=== PATIENT | male | born 1965 | race African-American/Black ===

== ENCOUNTER 2021-06-15 16:35 | Inpatient (IN) | payer MEDICAID, SELFPAY ==
--- NOTE | ~2021-06-15 | XR_ITS ---
EXAMINATION: XR CHEST CLINICAL INFORMATION: SOB and hypoxia. COMPARISON: None TECHNIQUE: Frontal view of the chest was obtained. FINDINGS: The lungs are well-expanded with patchy opacity seen in peripheral right midlung. Rest of the lungs are well-expanded and clear. The heart size and pulmonary vascularity is normal. No gross bony abnormality seen. XR/XR chest 1V IMPRESSION: Peripheral right midlung opacity likely developing infiltrate.
--- NOTE | ~2021-06-15 | CT_ITS ---
EXAMINATION: CTA CHEST PE STUDY CLINICAL INFORMATION: hypoxia, sob, chest wall pain COMPARISON: 05/19/2011 TECHNIQUE: Prior to contrast administration, noncontrast localization images were obtained. After the administration of 70 mL of Omnipaque 350 IV contrast, contiguous thin slice helical images were obtained through the thorax. Reformatted MIP images in the coronal and sagittal planes were obtained at the acquisition workstation. This CT examination was performed using dose optimization techniques as appropriate, variously including the following: *Automated exposure control *Adjustment of mA and/or kV according to patient size (this includes techniques or standardized protocols for targeted exams where dose is matched to indication/reason for exam; i.e. extremities or head) *Use of iterative reconstruction technique DLP: 237 mGy-cm. FINDINGS: The bolus timing on this study was acceptable for visualization of the pulmonary arterial tree. There are no intraluminal pulmonary arterial filling defects present to suggest pulmonary embolism. Patchy bilateral airspace disease is seen with a slight peripheral predominance. Viral or atypical infectious etiology would be strongly favored with this appearance. This is superimposed on underlying centrilobular emphysematous changes which is more apparent in the upper lobes. Although most of the airspace disease is patchy there is more dense consolidation in the lateral aspect of the right upper lobe. No abnormal pulmonary nodules or masses are appreciated. No significant hilar or mediastinal adenopathy. There is no evidence of pleural effusion or pneumothorax. The heart is normal in size. No evidence of ventricular septal bowing or right heart strain. Great vessels are normal. Otherwise the mediastinum is unremarkable. There is no pericardial effusion or pericardial thickening. Limited evaluation of the upper abdominal viscera is unremarkable. CT/CT angio chest PE protocol IMPRESSION: No evidence for pulmonary emboli. Patchy bilateral airspace disease with a peripheral predominance most consistent with superimposed atypical or viral infectious etiology superimposed on underlying emphysematous change. Clinical correlation and follow-up may be helpful. VTE: Negative
[2021-06-15 17:20] VITALS: BP 109/68; PULSE 93; RESP 18; TEMP 37.8; O2SAT 88; BMI 26.9
[2021-06-15 17:22] VITALS: BP 111/67; PULSE 93; RESP 18; TEMP 37.8; O2SAT 95
--- NOTE | 2021-06-15 17:26 | ECG_ITS ---
Test Reason : SOB Blood Pressure : / mmHG Vent. Rate : 089 BPM Atrial Rate : 089 BPM P-R Int : 120 ms QRS Dur : 088 ms QT Int : 328 ms P-R-T Axes : 068 019 -17 degrees QTc Int : 399 ms Normal sinus rhythm Voltage criteria for left ventricular hypertrophy Nonspecific T wave abnormality Abnormal ECG When compared with ECG of 07-JAN-2012 13:36, No significant change was found Referred By: Shira Moffett Electronically Signed By:CHIRAG MORALES
[2021-06-15 17:52] VITALS: BP 145/59; PULSE 88; RESP 18; TEMP 37.7; O2SAT 92
--- NOTE | 2021-06-15 18:00 | ED.URI ---
HPI - URI/Sore Throat General Chief Complaint: Upper Respiratory Symptoms Stated Complaint: cough cold congestion x3 days Time Seen by Provider: 06/15/21 16:45 Source: patient Mode of arrival: ambulatory Limitations: no limitations History of Present Illness HPI Narrative: 55-year-old male with a past medical history of hypertension, HIV on Biktarvy here with complaints of 4 days of nasal congestion, headaches, subjective fevers, body aches and shortness of breath. No chest pain, leg swelling or pain. No abdominal pain, vomiting or diarrhea. Patient denies sick contacts or recent travel. He has not received a COVID vaccine He tells me he is followed by Dr. Dominique from Infectious Disease. Last cd4 1275 09/2019 Related Data Home Medications Medication Instructions Recorded Confirmed atenolol 100 mg tablet 1 tab PO DAILY 06/15/21 06/15/21 bictegravir 50 mg-emtricitabine 1 tab PO QAM 06/15/21 06/15/21 200 mg-tenofovir alafenam 25 mg tablet (Biktarvy) cetirizine 10 mg tablet 1 tab PO DAILY 06/15/21 06/15/21 ibuprofen 600 mg tablet 600 mg PO Q8H PRN 06/15/21 06/15/21 lisinopril 10 mg tablet 1 tab PO DAILY 06/15/21 06/15/21 megestrol 400 mg/10 mL (40 mg/mL) 20 ml PO DAILY 06/15/21 06/15/21 oral suspension Allergies Allergy/AdvReac Type Severity Reaction Status Date / Time No Known Allergies Allergy Unverified 06/12/20 17:51 Review of Systems Review of Systems: Yes all other systems are reviewed and are negative Constitutional: Constitutional: Reports no additional constitutional complaints, Reports body ache(s), Reports chills, Reports fever(s), Reports headache(s) and Denies weakness Eyes: Eyes: Reports no additional eye complaints and Denies change in vision ENT: Reports system reviewed and no additional complaints, except as documented, Denies dizziness, Reports headache(s), Reports nasal congestion, Denies nasal discharge and Denies neck pain Cardiovascular: Cardiovascular: Reports no additional cardiovascular complaints, Denies chest pain, Denies leg edema and Reports dyspnea Respiratory: Respiratory: Reports no additional respiratory complaints, Reports cough and Reports dyspnea Gastrointestinal: Gastrointestinal: Reports no additional gastrointestinal complaints, Denies abdominal pain, Denies diarrhea, Denies nausea and Denies vomiting Genitourinary: Genitourinary: Denies urinary incontinence Musculoskeletal: Musculoskeletal: Reports no additional musculoskeletal complaints, Denies back pain, Denies arthralgias, Denies joint swelling, Denies neck pain, Denies numbness and Denies tingling Integumentary/Breasts: Skin/Breast: Reports system reviewed and no additional complaints, except as docu and Denies rash Neurologic: Reports system reviewed and no additional complaints, except as documented, Denies Abnormal speech present, Denies dizziness, Reports headache(s), Denies numbness, Denies tingling and Denies weakness PMFSH Past Medical History Attestation statement: The following information was validated with the patient. Source: old records reviewed and nursing notes reviewed Social History Social History Patient Tobacco Use Status: Current everyday Tobacco user Smoked in Last 30 Days: Yes Advance Directives: No Advance Directives Information Provided: No Physical Exam Vital Signs: Vital Signs: Last Vital Signs Temp 99 F 06/15/21 19:56 Pulse 87 06/15/21 19:56 Resp 18 06/15/21 19:56 BP 138/64 06/15/21 19:56 Pulse Ox 94 06/15/21 19:56 Body Mass Index 26.9 Const: General: cooperative, healthy appearing, comfortable and no acute distress Orientation/consciousness: patient oriented x3 Limitations: no limitations HENMT: Head: Yes normal to inspection Ears: hearing grossly normal bilaterally General nose exam: Normal external nose present Face and sinus: Yes normal facial exam Mouth: Normal oral and palatal mucosa present Throat: Yes posterior oropharynx normal Eyes: General: appearance normal, both eyes and all related structures Pupils: Equal, round and reactive pupils present Neck: Neck: Yes normal visual inspection Chest: Chest palpation & inspection: normal inspection of the chest Resp: Effort & Inspection: normal respiratory effort Auscultation: clear to auscultation bilaterally Cardio: Rate: regular rate Rhythm: regular rhythm Peripheral pulses: Peripheral pulses 2+ throughout GI: Inspection: Yes normal to inspection Palpation (GI): Soft to palpation and nontender Auscultation: normal bowel sounds Back/Spine/Pelvis: Thoracic/Lumbar Spine: thoracic and lumbar spine normal to inspection Skin: General skin exam: no rashes or lesions noted Neuro: General: patient oriented x3, no focal motor deficits and normal sensation to monofilament Cranial nerves: Yes Equal, round and reactive pupils present Cognition (Neuro): normal cognition Speech: No Abnormal speech present Gait exam (Neuro): Normal gait present Motor exam (neuro): 5/5 motor strength present throughout Extrem: General: Yes normal to inspection, Yes no pedal edema and Yes no calf tenderness Course Course Course Narrative: 55-year-old male with history of HIV or few with flu-like symptoms for 4 days.. On arrival he is hypoxic 88%. Improved on 5 L of oxygen. He is not vaccinated for COVID. Will check labs, EKG, chest x-ray, COVID screen 1829-CXR shows peripheral right midlung opacity likely developing infiltrate. AT this time infection is suspected. Antibiotics ordered. 1831-COVID screen positive. ?Reviewed labs which show a mild leukocytosis.. Also elevated LFTs which is likely from viral illness. Elevated troponin with no reports of chest pain or EKG changes. Plan to follow. Elevated D-dimer with hypoxia so will check CTA to rule out PE. [address] [facility] IMPRESSION: No evidence for pulmonary emboli. ? Patchy bilateral airspace disease with a peripheral predominance most consistent with superimposed atypical or viral infectious etiology superimposed on underlying emphysematous change. Clinical correlation and follow-up may be helpful. ? -spoke to Dr. Sotelo who accepted admission MDM - URI/Sore Throat Medical Records Attestation: I reviewed the patient's medical records. Lab Data Attestation: I reviewed the patient's lab results. Result diagrams: 06/15/21 18:05 06/15/21 19:04 Labs: Lab Results 06/15/21 06/15/21 06/15/21 Range/Units 18:05 18:05 18:05 WBC 11.0 H (4.8-10.8) X10*3/uL RBC 4.25 L (4.60-5.80) X10*6/uL Hgb 12.7 L (14.0-18.0) g/dl Hct 36.6 L (42-52) % MCV 86.1 (80-98) fL MCH 29.9 (27.0-33.0) pg MCHC 34.7 (31.0-36.0) g/dl RDW 15.8 (11.0-16.0) % Plt Count TNP MPV Not Reportable Immature Gran % (Auto) 0.7 H (0.0-0.4) % Neut % (Auto) 82.0 H (45-73) % Lymph % (Auto) 14.6 L (20-40) % [place] % (Auto) 2.6 (2-11) % Eos % (Auto) 0.0 (0-4) % Baso % (Auto) 0.1 (0-2) % Lymph # (Auto) 1.6 (1.2-4.9) X10*3/uL [place] # (Auto) 0.3 (0.1-1.2) X10*3/uL Eos # (Auto) 0.0 (0.0-0.4) X10*3/uL Baso # (Auto) 0.0 (0.0-0.2) X10*3/uL Abs Immat Gran (auto) 0.08 H (0.00-0.03) X10*3/uL Absolute Neuts (auto) 9.0 H (2.0-8.3) X10*3/uL Absolute Nucleated RBC 0.020 H (0.0-0.012) X10*3/uL Nucleated RBC % (auto) 0.2 (0.0-0.2) /100WBC Smear Tech's Comments VERIFIED Whole Blood PT (11.1-13.5) sec Whole Blood INR (0.9-1.1) D-Dimer NG/ML Sodium (135-145) mmol/L Potassium (3.3-5.1) mmol/L Chloride (96-108) mmol/L Carbon Dioxide (22-29) mmol/L Anion Gap (12-20) BUN (9-16) mg/dL Creatinine (0.5-1.4) mg/dL Estim Creat Clear Calc Estimated GFR Random Glucose (60-115) mg/dL Lactic Acid 2.3 H* (0.5-2.0) mmol/L Lactic Acid Fup @ 2Hr (0.5-2.0) mmol/L Calcium (8.4-10.2) mg/dL Magnesium (1.6-2.6) mg/dL Ferritin Total Bilirubin (0.0-1.0) mg/dL Direct Bilirubin (0.0-0.5) mg/dL AST (5-37) U/L ALT (0-40) U/L Alkaline Phosphatase (39-117) U/L Lactate Dehydrogenase Troponin I High Sens 42.5 H* (<3.5-35.0) ng/L Total Protein (6.5-8.0) g/dL Albumin (3.5-5.0) g/dL Procalcitonin ng/mL COVID-19 (RICHARD) (Negative) COVID-19 Clin Com 06/15/21 06/15/21 06/15/21 Range/Units 18:05 18:05 18:05 WBC (4.8-10.8) X10*3/uL RBC (4.60-5.80) X10*6/uL Hgb (14.0-18.0) g/dl Hct (42-52) % MCV (80-98) fL MCH (27.0-33.0) pg MCHC (31.0-36.0) g/dl RDW (11.0-16.0) % Plt Count MPV Immature Gran % (Auto) (0.0-0.4) % Neut % (Auto) (45-73) % Lymph % (Auto) (20-40) % [place] % (Auto) (2-11) % Eos % (Auto) (0-4) % Baso % (Auto) (0-2) % Lymph # (Auto) (1.2-4.9) X10*3/uL [place] # (Auto) (0.1-1.2) X10*3/uL Eos # (Auto) (0.0-0.4) X10*3/uL Baso # (Auto) (0.0-0.2) X10*3/uL Abs Immat Gran (auto) (0.00-0.03) X10*3/uL Absolute Neuts (auto) (2.0-8.3) X10*3/uL Absolute Nucleated RBC (0.0-0.012) X10*3/uL Nucleated RBC % (auto) (0.0-0.2) /100WBC Smear Tech's Comments Whole Blood PT (11.1-13.5) sec Whole Blood INR (0.9-1.1) D-Dimer 818 NG/ML Sodium (135-145) mmol/L Potassium (3.3-5.1) mmol/L Chloride (96-108) mmol/L Carbon Dioxide (22-29) mmol/L Anion Gap (12-20) BUN (9-16) mg/dL Creatinine (0.5-1.4) mg/dL Estim Creat Clear Calc Estimated GFR Random Glucose (60-115) mg/dL Lactic Acid (0.5-2.0) mmol/L Lactic Acid Fup @ 2Hr (0.5-2.0) mmol/L Calcium (8.4-10.2) mg/dL Magnesium (1.6-2.6) mg/dL Ferritin Cancelled Total Bilirubin (0.0-1.0) mg/dL Direct Bilirubin (0.0-0.5) mg/dL AST (5-37) U/L ALT (0-40) U/L Alkaline Phosphatase (39-117) U/L Lactate Dehydrogenase Cancelled Troponin I High Sens (<3.5-35.0) ng/L Total Protein (6.5-8.0) g/dL Albumin (3.5-5.0) g/dL Procalcitonin ng/mL COVID-19 (RICHARD) Positive A (Negative) COVID-19 Clin Com See Note 06/15/21 06/15/21 06/15/21 Range/Units 19:04 19:04 21:17 WBC (4.8-10.8) X10*3/uL RBC (4.60-5.80) X10*6/uL Hgb (14.0-18.0) g/dl Hct (42-52) % MCV (80-98) fL MCH (27.0-33.0) pg MCHC (31.0-36.0) g/dl RDW (11.0-16.0) % Plt Count MPV Immature Gran % (Auto) (0.0-0.4) % Neut % (Auto) (45-73) % Lymph % (Auto) (20-40) % [place] % (Auto) (2-11) % Eos % (Auto) (0-4) % Baso % (Auto) (0-2) % Lymph # (Auto) (1.2-4.9) X10*3/uL [place] # (Auto) (0.1-1.2) X10*3/uL Eos # (Auto) (0.0-0.4) X10*3/uL Baso # (Auto) (0.0-0.2) X10*3/uL Abs Immat Gran (auto) (0.00-0.03) X10*3/uL Absolute Neuts (auto) (2.0-8.3) X10*3/uL Absolute Nucleated RBC (0.0-0.012) X10*3/uL Nucleated RBC % (auto) (0.0-0.2) /100WBC Smear Tech's Comments Whole Blood PT (11.1-13.5) sec Whole Blood INR (0.9-1.1) D-Dimer NG/ML Sodium 134 L (135-145) mmol/L Potassium 3.5 (3.3-5.1) mmol/L Chloride 97 (96-108) mmol/L Carbon Dioxide 24 (22-29) mmol/L Anion Gap 17 (12-20) BUN 13 (9-16) mg/dL Creatinine 1.28 (0.5-1.4) mg/dL Estim Creat Clear Calc 53.5 Estimated GFR 58 Random Glucose 89 (60-115) mg/dL Lactic Acid (0.5-2.0) mmol/L Lactic Acid Fup @ 2Hr 1.3 (0.5-2.0) mmol/L Calcium 8.5 (8.4-10.2) mg/dL Magnesium 2.6 (1.6-2.6) mg/dL Ferritin 2910 H Total Bilirubin 3.5 H (0.0-1.0) mg/dL Direct Bilirubin 2.0 H (0.0-0.5) mg/dL AST 129 H (5-37) U/L ALT 66 H (0-40) U/L Alkaline Phosphatase 83 (39-117) U/L Lactate Dehydrogenase 693 H Troponin I High Sens (<3.5-35.0) ng/L Total Protein 7.3 (6.5-8.0) g/dL Albumin 3.7 (3.5-5.0) g/dL Procalcitonin 1.35 ng/mL COVID-19 (RICHARD) (Negative) COVID-19 Clin Com 06/15/21 06/15/21 Range/Units 21:17 21:31 WBC (4.8-10.8) X10*3/uL RBC (4.60-5.80) X10*6/uL Hgb (14.0-18.0) g/dl Hct (42-52) % MCV (80-98) fL MCH (27.0-33.0) pg MCHC (31.0-36.0) g/dl RDW (11.0-16.0) % Plt Count MPV Immature Gran % (Auto) (0.0-0.4) % Neut % (Auto) (45-73) % Lymph % (Auto) (20-40) % [place] % (Auto) (2-11) % Eos % (Auto) (0-4) % Baso % (Auto) (0-2) % Lymph # (Auto) (1.2-4.9) X10*3/uL [place] # (Auto) (0.1-1.2) X10*3/uL Eos # (Auto) (0.0-0.4) X10*3/uL Baso # (Auto) (0.0-0.2) X10*3/uL Abs Immat Gran (auto) (0.00-0.03) X10*3/uL Absolute Neuts (auto) (2.0-8.3) X10*3/uL Absolute Nucleated RBC (0.0-0.012) X10*3/uL Nucleated RBC % (auto) (0.0-0.2) /100WBC Smear Tech's Comments Whole Blood PT 13.8 H (11.1-13.5) sec Whole Blood INR 1.2 H (0.9-1.1) D-Dimer NG/ML Sodium (135-145) mmol/L Potassium (3.3-5.1) mmol/L Chloride (96-108) mmol/L Carbon Dioxide (22-29) mmol/L Anion Gap (12-20) BUN (9-16) mg/dL Creatinine (0.5-1.4) mg/dL Estim Creat Clear Calc Estimated GFR Random Glucose (60-115) mg/dL Lactic Acid (0.5-2.0) mmol/L Lactic Acid Fup @ 2Hr (0.5-2.0) mmol/L Calcium (8.4-10.2) mg/dL Magnesium (1.6-2.6) mg/dL Ferritin Total Bilirubin (0.0-1.0) mg/dL Direct Bilirubin (0.0-0.5) mg/dL AST (5-37) U/L ALT (0-40) U/L Alkaline Phosphatase (39-117) U/L Lactate Dehydrogenase Troponin I High Sens 48.0 H* (<3.5-35.0) ng/L Total Protein (6.5-8.0) g/dL Albumin (3.5-5.0) g/dL Procalcitonin ng/mL COVID-19 (RICHARD) (Negative) COVID-19 Clin Com Imaging Data Chest x-ray: Attestation: I personally reviewed and interpreted this imaging study as follows: Radiologist's impression: EXAMINATION: XR CHEST CLINICAL INFORMATION: SOB and hypoxia. COMPARISON: None TECHNIQUE: Frontal view of the chest was obtained. FINDINGS: The lungs are well-expanded with patchy opacity seen in peripheral right midlung. Rest of the lungs are well-expanded and clear. The heart size and pulmonary vascularity is normal. No gross bony abnormality seen. XR/XR chest 1V IMPRESSION: Peripheral right midlung opacity likely developing infiltrate. ? CT scan - chest: Attestation: I personally reviewed and interpreted this imaging study as follows: Radiologist's impression: IMPRESSION: No evidence for pulmonary emboli. ? Patchy bilateral airspace disease with a peripheral predominance most consistent with superimposed atypical or viral infectious etiology superimposed on underlying emphysematous change. Clinical correlation and follow-up may be helpful. ? VTE: Negative ECG Data Attestation: I personally reviewed and interpreted this ECG as follows: ECG interpretation date: 06/15/21 ECG interpretation time: 18:41 Interpretation: Normal sinus rhythm with a rate in 9, normal NV, normal QRS, normal QT. Nonspecific ST changes Critical Care Time Critical Care Time Critical Care Time: Yes Total Critical Care Time: 30 Attestation: hypoxia, requiring admit, discussion with medicine Discharge Plan Discharge Clinical Impression: COVID-19, Pneumonia, Hypoxia, Elevated liver enzymes Patient Disposition: Admitted As Inpatient
[2021-06-15 18:17] LABS: Basophils Percent Auto 0.1 % (0-2); MANUAL DIFF FLAG SCAN; Red Cell Distribution Width 15.8 % (11.0-16.0)
[2021-06-15 18:26] LABS: COVID-19 Test Positive (Negative); IDNOW Serial# 9DD0AD1C
--- NOTE | 2021-06-15 18:29 | PHA.MEDREC ---
Pharmacy Consult ? Medication Reconciliation Pharmacy has completed the medication reconciliation. Pulled the medications from his external medication history.
[2021-06-15 18:30] LABS: D Dimer 818 NG/ML
[2021-06-15 18:32] LABS: Lactic Acid 2.3 mmol/L (0.5-2.0)
[2021-06-15 18:37] LABS: Hemoglobin 12.7 g/dl (14.0-18.0); SCAN SMEAR FLAG 1
[2021-06-15 18:39] LABS: Hematocrit 36.6 % (42-52); Imm Gran Abs Auto 0.08 X10*3/uL (0.00-0.03); Imm Gran Pct Auto 0.7 % (0.0-0.4); Lymphocytes Absolute Auto 1.6 X10*3/uL (1.2-4.9); Lymphocytes Percent Auto 14.6 % (20-40); Mean Corpuscular HGB Conc 34.7 g/dl (31.0-36.0); Mean Corpuscular Hemoglobin 29.9 pg (27.0-33.0); Mean Corpuscular Volume 86.1 fL (80-98); Monocytes Absolute Auto 0.3 X10*3/uL (0.1-1.2); Monocytes Percent Auto 2.6 % (2-11); NRBC Pct Auto 0.2 /100WBC (0.0-0.2); PLT CLUMP 1; Red Blood Count 4.25 X10*6/uL (4.60-5.80)
[2021-06-15 18:42] LABS: PLT ABN DIST 1
[2021-06-15 18:48] LABS: Troponin-I High Sensitivity 42.5 ng/L (<3.5-35.0)
[2021-06-15 19:01] LABS: SLIDE REVIEW VERIFIED
[2021-06-15] MEDS: Sulfamethox/Trimeth 800/160 TABLET 2 TAB PO (19:17)
[2021-06-15] MEDS: cefTRIAXone sodium 1 GM in 0.9 % Sodium Chloride 50 ML IV (19:17)
[2021-06-15 19:31] LABS: Alanine Aminotransferase 66 U/L (0-40); Albumin Level 3.7 g/dL (3.5-5.0); Alkaline Phosphatase 83 U/L (39-117); Anion Gap 17 (12-20); Aspartate Amino Transferase 129 U/L (5-37); Bilirubin Total 3.5 mg/dL (0.0-1.0); Blood Urea Nitrogen 13 mg/dL (9-16); Calcium 8.5 mg/dL (8.4-10.2); Carbon Dioxide 24 mmol/L (22-29); Chloride 97 mmol/L (96-108); Creatinine Clr Calc Pharmacy 53.5; Estimated Glomerular Filt Rate 58; Glucose Random 89 mg/dL (60-115); Lactate Dehydrogenase 693 U/L (118-273); Magnesium 2.6 mg/dL (1.6-2.6); Potassium 3.5 mmol/L (3.3-5.1); Sodium 134 mmol/L (135-145); Total Protein 7.3 g/dL (6.5-8.0)
[2021-06-15] MEDS: Azithromycin 500 MG in 0.9 % Sodium Chloride 250 ML 125 MG IV (19:55)
[2021-06-15 19:56] VITALS: BP 138/64; PULSE 87; RESP 18; TEMP 37.2; O2SAT 94
[2021-06-15 20:04] LABS: Procalcitonin 1.35 ng/mL
[2021-06-15 20:11] LABS: Reflex Lactate? Lactic Acid Added
[2021-06-15] MEDS: iohexoL 350 MG/ML 100 ML INFUS..BTL IV (20:19)
[2021-06-15 20:25] LABS: Ferritin 2910 ng/mL (20-250)
--- NOTE | 2021-06-15 20:47 | PC.NURSE ---
Patient A+Ox4. COVID positive. Labs drawn and sent. IV palced and flushed. MEds given per NOV. Independent in room. Continent. Hypoxic on admission on room air at 88%. Placed on 5 L NC. SPO2 95%. VSS. Resting safely.
[2021-06-15 21:32] LABS: ~Lactic Acid-LAB USE ONLY 1.3 mmol/L (0.5-2.0)
[2021-06-15 21:37] LABS: Prothrombin Time Whole Bld POC 13.8 sec (11.1-13.5); ~PT, ~INR - Anti Coag Clinic 1.2 (0.9-1.1)
[2021-06-15 22:10] LABS: Appearance Urine CLEAR; Color Urine YELLOW; Glucose Urine UA NEG (NEG); Leukocyte Esterase Urine NEG (NEG); Nitrite Urine NEG (NEG); PH 6.5 (5.0-8.0); UACC Culture Trigger NO; Urine Blood 3+ (NEG); Urine Ketones 5 MG/DL (NEG); Urine Protein 3+ MG/DL (NEG-TRACE)
[2021-06-15 22:20] LABS: Bacteria Urine 1+ /LPF; WBC Urine 0 /HPF (0-4)
--- NOTE | 2021-06-15 23:07 | PM.IMHP ---
History of Present Illness Date of Service: 06/15/21 Chief Complaint: SOB 55-year-old male with past medical history of HIV presents to the hospital complaining of shortness breast as well as cough for the past few days. Patient was also complaining of right-sided chest pain that is constant, nonradiating, /10, no alleviating or exacerbating factors. Patient is non vaccinated against COVID. And is not sure if he has been around any sick contacts. Her denies any palpitations, no headache or change in vision, no dizziness. No abdominal pain nausea or vomiting, no diarrhea or constipation, urinary symptoms and no lower extremity edema. On arrival to the ED patient noted to be hypoxic with an O2 level of 88% on room air, has temp of a 100.1?, heart rate of 93, respiratory rate of 18, blood pressure 109/60 For WBC count of 11, hemoglobin 12.7 PT of 13.8, INR of 1.2, D-dimer of 818, sodium of 134, lactic acid of 2.3 improved after IV fluids, ferritin of 2910, total bili of 3.5, AST of 129, ALT of 66, LDH of 693, troponin initially of 42.5 that increased to 48, COVID-[address] angiogram which was negative for PE but showed patchy bilateral airspace disease with peripheral predominant most consistent with superimposed atypical or viral pneumonia Patient will be admitted for further management Review of Systems Review of Systems: Yes all other systems are reviewed and are negative [facility] Medical History HIV (human immunodeficiency virus infection) Hypertension Pertinent family history: denies any family history Surgical History No significant past surgical history Social History Patient Tobacco Use Status: Current everyday Tobacco user Smoked in Last 30 Days: Yes Advance Directives: No Advance Directives Information Provided: No Meds Allergies Allergy/AdvReac Type Severity Reaction Status Date / Time No Known Allergies Allergy Unverified 06/12/20 17:51 Active Medications: Current Medications Acetaminophen (Acetaminophen 325 Mg Tablet) 650 mg PO Q6H PRN PRN Reason: Pain, Mild (Pain Scale 1-3) Atenolol (Atenolol 100 Mg Tablet) 100 mg PO DAILY [facility]; Protocol Bictegravir/Emtricitabine/Tenofovir (Bictegrav/Emtricit/Tenofov Ala 1 Tab Tablet) 1 tab PO DAILY [facility] Dexamethasone Sodium Phosphate (Dexamethasone Sod Phosphate 4 Mg/Ml Vial) 6 mg IVPUSH DAILY [facility] Docusate Sodium (Docusate Sodium 100 Mg Capsule) 100 mg PO DAILY PRN PRN Reason: Constipation Heparin Sodium (Porcine) (Heparin Sodium,Porcine 5,000 Unit/Ml Vial) 5,000 unit SUBCUT Q12H [facility] Sodium Chloride (Ns) 1,000 mls @ 100 mls/hr IVCONT .Q10H [facility] Stop: 06/16/21 08:51 Ibuprofen (Ibuprofen 600 Mg Tablet) 600 mg PO Q8H PRN PRN Reason: Headache Lisinopril (Lisinopril 10 Mg Tablet) 10 mg PO DAILY [facility]; Protocol Loratadine (Loratadine 10 Mg Tablet) 10 mg PO DAILY [facility] Megestrol Acetate (Megestrol Acetate 400 Mg/10 Ml Oral.Susp) 800 mg PO DAILY [facility] Ondansetron HCl (Ondansetron Hcl 4 Mg/2 Ml Vial) 4 mg IVPUSH Q8H PRN PRN Reason: Nausea and Vomiting Pharmacy Consult (Consult Rx Perform Med Rec) 1 each MISCELLANE ONCE PRN PRN Reason: Consult order Home Medications Medication Instructions Recorded Confirmed Last Taken Type atenolol 100 mg tablet 1 tab PO DAILY 06/15/21 06/15/21 Unknown History bictegravir 50 mg-emtricitabine 1 tab PO QAM 06/15/21 06/15/21 Unknown History 200 mg-tenofovir alafenam 25 mg tablet (Biktarvy) cetirizine 10 mg tablet 1 tab PO DAILY 06/15/21 06/15/21 Unknown History ibuprofen 600 mg tablet 600 mg PO Q8H PRN 06/15/21 06/15/21 Unknown History lisinopril 10 mg tablet 1 tab PO DAILY 06/15/21 06/15/21 Unknown History megestrol 400 mg/10 mL (40 mg/mL) 20 ml PO DAILY 06/15/21 06/15/21 Unknown History oral suspension Physical Exam Vital Signs and Narrative: Vital Signs: Last Vital Signs Temp 99 F 06/15/21 19:56 Pulse 87 06/15/21 19:56 Resp 18 06/15/21 19:56 BP 138/64 06/15/21 19:56 Pulse Ox 94 06/15/21 19:56 Body Mass Index 26.9 Const: General: cooperative and no acute distress Orientation/consciousness: patient oriented x3 Eyes: General: appearance normal, both eyes and all related structures Pupils: Equal, round and reactive pupils present Resp: Other: crackles bilaterally Effort & Inspection: normal respiratory effort Cardio: Rate: regular rate Rhythm: regular rhythm GI: Palpation (GI): Soft to palpation Auscultation: normal bowel sounds Skin: General skin exam: no rashes or lesions noted Neuro: General: patient oriented x3 Cranial nerves: Yes Equal, round and reactive pupils present Cognition (Neuro): normal cognition Extrem: General: Yes normal to inspection and Yes no pedal edema Results Labs CBC and Chem 7: 06/15/21 18:05 06/16/21 05:57 Labs: Laboratory Results - last 24 hr 06/15/21 06/15/21 06/15/21 18:05 18:05 18:05 MCV 86.1 MCH 29.9 MCHC 34.7 RDW 15.8 Plt Count TNP MPV Not Reportable Immature Gran % (Auto) 0.7 H Neut % (Auto) 82.0 H Lymph % (Auto) 14.6 L [place] % (Auto) 2.6 Eos % (Auto) 0.0 Baso % (Auto) 0.1 Lymph # (Auto) 1.6 [place] # (Auto) 0.3 Eos # (Auto) 0.0 Baso # (Auto) 0.0 Abs Immat Gran (auto) 0.08 H Absolute Neuts (auto) 9.0 H Absolute Nucleated RBC 0.020 H Nucleated RBC % (auto) 0.2 Smear Tech's Comments VERIFIED Whole Blood PT Whole Blood INR D-Dimer Anion Gap Estim Creat Clear Calc Estimated GFR Random Glucose Lactic Acid 2.3 H* Lactic Acid Fup @ 2Hr Calcium Magnesium Ferritin Total Bilirubin Direct Bilirubin AST ALT Alkaline Phosphatase Lactate Dehydrogenase Troponin I High Sens 42.5 H* Total Protein Albumin Procalcitonin Urine Color Urine Appearance Urine pH Ur Specific [place] Urine Protein Urine Glucose (UA) Urine Ketones Urine Blood Urine Nitrite Ur Leukocyte Esterase Urine RBC Urine WBC Ur Squamous Epith Cells Urine Bacteria COVID-19 ([facility]) COVID-19 Clin Com 06/15/21 06/15/21 06/15/21 18:05 18:05 18:05 MCV MCH MCHC RDW Plt Count MPV Immature Gran % (Auto) Neut % (Auto) Lymph % (Auto) [place] % (Auto) Eos % (Auto) Baso % (Auto) Lymph # (Auto) [place] # (Auto) Eos # (Auto) Baso # (Auto) Abs Immat Gran (auto) Absolute Neuts (auto) Absolute Nucleated RBC Nucleated RBC % (auto) Smear Tech's Comments Whole Blood PT Whole Blood INR D-Dimer 818 Anion Gap Estim Creat Clear Calc Estimated GFR Random Glucose Lactic Acid Lactic Acid Fup @ 2Hr Calcium Magnesium Ferritin Cancelled Total Bilirubin Direct Bilirubin AST ALT Alkaline Phosphatase Lactate Dehydrogenase Cancelled Troponin I High Sens Total Protein Albumin Procalcitonin Urine Color Urine Appearance Urine pH Ur Specific [place] Urine Protein Urine Glucose (UA) Urine Ketones Urine Blood Urine Nitrite Ur Leukocyte Esterase Urine RBC Urine WBC Ur Squamous Epith Cells Urine Bacteria COVID-19 ([facility]) Positive A COVID-19 Clin Com See Note 06/15/21 06/15/21 06/15/21 19:04 19:04 21:17 MCV MCH MCHC RDW Plt Count MPV Immature Gran % (Auto) Neut % (Auto) Lymph % (Auto) [place] % (Auto) Eos % (Auto) Baso % (Auto) Lymph # (Auto) [place] # (Auto) Eos # (Auto) Baso # (Auto) Abs Immat Gran (auto) Absolute Neuts (auto) Absolute Nucleated RBC Nucleated RBC % (auto) Smear Tech's Comments Whole Blood PT Whole Blood INR D-Dimer Anion Gap 17 Estim Creat Clear Calc 53.5 Estimated GFR 58 Random Glucose 89 Lactic Acid Lactic Acid Fup @ 2Hr 1.3 Calcium 8.5 Magnesium 2.6 Ferritin 2910 H Total Bilirubin 3.5 H Direct Bilirubin 2.0 H AST 129 H ALT 66 H Alkaline Phosphatase 83 Lactate Dehydrogenase 693 H Troponin I High Sens Total Protein 7.3 Albumin 3.7 Procalcitonin 1.35 Urine Color Urine Appearance Urine pH Ur Specific [place] Urine Protein Urine Glucose (UA) Urine Ketones Urine Blood Urine Nitrite Ur Leukocyte Esterase Urine RBC Urine WBC Ur Squamous Epith Cells Urine Bacteria COVID-19 ([facility]) COVID-19 Clin Com 06/15/21 06/15/21 06/15/21 21:17 21:31 22:03 MCV MCH MCHC RDW Plt Count MPV Immature Gran % (Auto) Neut % (Auto) Lymph % (Auto) [place] % (Auto) Eos % (Auto) Baso % (Auto) Lymph # (Auto) [place] # (Auto) Eos # (Auto) Baso # (Auto) Abs Immat Gran (auto) Absolute Neuts (auto) Absolute Nucleated RBC Nucleated RBC % (auto) Smear Tech's Comments Whole Blood PT 13.8 H Whole Blood INR 1.2 H D-Dimer Anion Gap Estim Creat Clear Calc Estimated GFR Random Glucose Lactic Acid Lactic Acid Fup @ 2Hr Calcium Magnesium Ferritin Total Bilirubin Direct Bilirubin AST ALT Alkaline Phosphatase Lactate Dehydrogenase Troponin I High Sens 48.0 H* Total Protein Albumin Procalcitonin Urine Color YELLOW Urine Appearance CLEAR Urine pH 6.5 Ur Specific [place] 1.010 Urine Protein 3+ H Urine Glucose (UA) NEG Urine Ketones 5 Urine Blood 3+ H Urine Nitrite NEG Ur Leukocyte Esterase NEG Urine RBC 1-4 Urine WBC 0 Ur Squamous Epith Cells NONE Urine Bacteria 1+ COVID-19 ([facility]) COVID-19 Clin Com Imaging Radiologist's Impressions: Impressions Chest X-Ray 06/15/21 17:27 IMPRESSION: Peripheral right midlung opacity likely developing infiltrate. Chest CTA 06/15/21 19:33 IMPRESSION: No evidence for pulmonary emboli. Patchy bilateral airspace disease with a peripheral predominance most consistent with superimposed atypical or viral infectious etiology superimposed on underlying emphysematous change. Clinical correlation and follow-up may be helpful. VTE: Negative Assessment and Plan (1) Acute respiratory failure with hypoxia: Status: Acute (2) COVID-19: Status: Acute (3) Pneumonia: Status: Acute (4) Sepsis: Status: Acute 55-year-old male with past medical history of HIV on Biktarvy presents to the hospital with shortness of breath as well the cough found to have COVID-19 pneumonia # acute hypoxic respiratory failure - secondary to COVID-19 pneumonia - 88% on room air on initial arrival - currently on 5 L of oxygen - dexamethasone for COVID-19 treatment - monitor respiratory status # sepsis - 2/2 COVID 19 PNA - has fever, leukocytosis - tx of covid 19 with O2 as well as dexamethasone - will hold off on starting abx - follow cultures # COVID-19 pneumonia - patient hypoxic, has bilateral infiltrate on chest CT - unvaccinated - will treat with dexamethasone - monitor respiratory status # HIV - continue Biktarvy DVT prophylaxis: Heparin subQ Quality Stroke Does the patient have a stroke diagnosis?: No VTE Prior VTE?: No VTE Risk Level:: Medical - moderate - high VTE Device Contraindication: Treatment Not Indicated VTE Drug Contraindication: N/A - Med Ordered
[2021-06-15] MEDS: 0.9 % Sodium Chloride 1,000 ML 100 ML IVCONT (23:58)
[2021-06-15] MEDS: Heparin Sodium,Porcine 5,000 UNIT/ML VIAL 5000 UNIT SUBCUT (23:59)
[2021-06-16] VITALS (15 sets, daily range): BP systolic 107–140; BP diastolic 54–72; PULSE 81–95; RESP 18–26; TEMP 36.3–39.2; O2SAT 86–95
--- NOTE | 2021-06-16 00:52 | PC.NURSE ---
pt a&O, he denies increase sob or chest pain. Pt placed on tele monitor. medicated per Nov. Gave report to Ej CHUN.
[2021-06-16 06:25] LABS: Basophils Percent Auto 0.1 % (0-2); Lymphocytes Absolute Auto 1.8 X10*3/uL (1.2-4.9); MANUAL DIFF FLAG SCAN; Mean Corpuscular Hemoglobin 30.7 pg (27.0-33.0); PLT CLUMP 1; SCAN SMEAR FLAG 1
[2021-06-16 06:27] LABS: Hematocrit 33.2 % (42-52); Hemoglobin 11.8 g/dl (14.0-18.0); Imm Gran Abs Auto 0.09 X10*3/uL (0.00-0.03); Imm Gran Pct Auto 0.8 % (0.0-0.4); Lymphocytes Percent Auto 15.8 % (20-40); Mean Corpuscular HGB Conc 35.5 g/dl (31.0-36.0); Mean Corpuscular Volume 86.5 fL (80-98); Mean Platelet Volume 11.8 fL (9.4-12.4); Monocytes Absolute Auto 0.3 X10*3/uL (0.1-1.2); Neutrophils Percent Auto 80.3 % (45-73); Red Blood Count 3.84 X10*6/uL (4.60-5.80); Red Cell Distribution Width 15.8 % (11.0-16.0); White Blood Count 11.1 X10*3/uL (4.8-10.8)
[2021-06-16 06:32] LABS: Anion Gap 14 (12-20); Blood Urea Nitrogen 11 mg/dL (9-16); Calcium 7.7 mg/dL (8.4-10.2); Carbon Dioxide 22 mmol/L (22-29); Chloride 100 mmol/L (96-108); Creatinine Clr Calc Pharmacy 61.1; Estimated Glomerular Filt Rate > 60; Glucose Random 77 mg/dL (60-115); Sodium 133 mmol/L (135-145)
[2021-06-16 07:03] LABS: Platelet Count 89 X10*3/uL (160-400)
[2021-06-16 07:17] LABS: SLIDE REVIEW VERIFIED
[2021-06-16 08:15] LABS: C Reactive Protein 15.72 mg/dL (< or = 0.50); Lactate Dehydrogenase 567 U/L (118-273)
[2021-06-16 08:51] LABS: Alanine Aminotransferase 52 U/L (0-40); Alkaline Phosphatase 69 U/L (39-117); Aspartate Amino Transferase 101 U/L (5-37); Bilirubin Direct 1.8 mg/dL (0.0-0.5); Bilirubin Total 2.5 mg/dL (0.0-1.0); Total Protein 5.7 g/dL (6.5-8.0)
[2021-06-16] MEDS: Megestrol Acetate 400 MG/10 ML ORAL.SUSP 800 MG PO (08:58)
[2021-06-16] MEDS: dexAMETHasone sod phosphate 4 MG/ML VIAL 6 MG IVPUSH (08:59)
[2021-06-16] MEDS: lisinopriL 10 MG TABLET PO (08:59)
[2021-06-16] MEDS: Potassium Chloride ER 20 MEQ TAB.ER.PRT 40 MEQ PO (08:59)
[2021-06-16] MEDS: Loratadine 10 MG TABLET PO (08:59)
[2021-06-16] MEDS: atenoloL 100 MG TABLET PO (09:00)
[2021-06-16 09:40] LABS: Ferritin 2168 ng/mL (20-250)
[2021-06-16] MEDS: Heparin Sodium,Porcine 5,000 UNIT/ML VIAL 5000 UNIT SUBCUT (10:47)
--- NOTE | 2021-06-16 11:21 | MHC.CM.PN ---
Patient is Covid (+) and unreachable by phone attempts; CM spoke with /Jina @ [phone]. Patient lives in an apartment with his and he required no DME nor services CALL [facility]. Goal for dc is home/no services and CM has initiated and will follow for dc planning. PCP is Dr. Madelin Akhtar.Patient's Mother/Opal at [phone] is the HCP.
--- NOTE | 2021-06-16 11:42 | P.PNIM_ITS ---
Progress Note: A&P (1) Sepsis: Status: Acute (2) Acute respiratory failure with hypoxia: Status: Acute (3) COVID-19: Status: Acute Assessment and Plan: 55-year-old male with past medical history of HIV on Biktarvy presents to the hospital with shortness of breath as well the cough found to have COVID-19 pneumonia acute hypoxic respiratory failure. secondary to COVID-19 pneumonia dexamethasone Supplemental oxygen ID consult Viral sepsis secondary to Covid 19 pna follow cx bilateral infiltrate on chest CT unvaccinated dexamethasone Transaminitis Likely secondary to viral infection from covid vs etoh Denied alcohol abuse trend HIV continue Biktarvy DVT prophylaxis:? Heparin subQ Attending Dr. Stanley Subjective Subjective Date of Service: 06/16/21 Review of Systems Follow up covid 19 no sob, some dry cough Denies chest pain, abdominal pain, nausea, fever Physical Exam Vital Signs: Vital Signs: Last Vital Signs Temp 99.2 F 06/16/21 11:30 Pulse 87 06/16/21 11:30 Resp 20 06/16/21 11:30 BP 107/54 L 06/16/21 11:30 Pulse Ox 90 L 06/16/21 11:30 Oxygen Flow Rate 5 06/16/21 00:49 Body Mass Index 26.9 Appearing in no acute distress lung normal expansion heart regular rate rhythm, clear S1, S2 positive bowel sounds, abdomen is soft, nontender neuro patient is alert x3, no focal deficits Objective Data Current Medications Acetaminophen (Acetaminophen 325 Mg Tablet) 650 mg PO Q6H PRN PRN Reason: Pain, Mild (Pain Scale 1-3) Atenolol (Atenolol 100 Mg Tablet) 100 mg PO DAILY [facility]; Protocol Last Admin: 06/16/21 09:00 Dose: 100 mg Documented by: Bictegravir/Emtricitabine/Tenofovir (Bictegrav/Emtricit/Tenofov Ala 1 Tab Tablet) 1 tab PO DAILY [facility] Last Admin: 06/16/21 09:00 Dose: 1 tab Documented by: Dexamethasone Sodium Phosphate (Dexamethasone Sod Phosphate 4 Mg/Ml Vial) 6 mg IVPUSH DAILY [facility] Last Admin: 06/16/21 08:59 Dose: 6 mg Documented by: Docusate Sodium (Docusate Sodium 100 Mg Capsule) 100 mg PO DAILY PRN PRN Reason: Constipation Heparin Sodium (Porcine) (Heparin Sodium,Porcine 5,000 Unit/Ml Vial) 5,000 unit SUBCUT Q12H [facility] Last Admin: 06/16/21 10:47 Dose: 5,000 unit Documented by: Remdesivir 200 mg/ Sodium (Chloride) 210 mls @ 105 mls/hr IV ONCE ONE Stop: 06/16/21 13:59 Remdesivir 100 mg/ Sodium (Chloride) 230 mls @ 115 mls/hr IV Q24H [facility] Stop: 06/20/21 13:59 Ibuprofen (Ibuprofen 600 Mg Tablet) 600 mg PO Q8H PRN PRN Reason: Headache Lisinopril (Lisinopril 10 Mg Tablet) 10 mg PO DAILY [facility]; Protocol Last Admin: 06/16/21 08:59 Dose: 10 mg Documented by: Loratadine (Loratadine 10 Mg Tablet) 10 mg PO DAILY [facility] Last Admin: 06/16/21 08:59 Dose: 10 mg Documented by: Megestrol Acetate (Megestrol Acetate 400 Mg/10 Ml Oral.Susp) 800 mg PO DAILY [facility] Last Admin: 06/16/21 08:58 Dose: 800 mg Documented by: Ondansetron HCl (Ondansetron Hcl 4 Mg/2 Ml Vial) 4 mg IVPUSH Q8H PRN PRN Reason: Nausea and Vomiting Pharmacy Consult (Consult Rx Perform Med Rec) 1 each MISCELLANE ONCE PRN PRN Reason: Consult order Labs CBC & Chem 7: 06/16/21 05:57 06/16/21 05:57 Labs: Laboratory Results - last 24 hr 06/15/21 06/15/21 06/15/21 18:05 18:05 18:05 MCV 86.1 MCH 29.9 MCHC 34.7 RDW 15.8 Plt Count TNP MPV Not Reportable Immature Gran % (Auto) 0.7 H Neut % (Auto) 82.0 H Lymph % (Auto) 14.6 L [place] % (Auto) 2.6 Eos % (Auto) 0.0 Baso % (Auto) 0.1 Lymph # (Auto) 1.6 [place] # (Auto) 0.3 Eos # (Auto) 0.0 Baso # (Auto) 0.0 Abs Immat Gran (auto) 0.08 H Absolute Neuts (auto) 9.0 H Absolute Nucleated RBC 0.020 H Nucleated RBC % (auto) 0.2 Smear Tech's Comments VERIFIED Whole Blood PT Whole Blood INR D-Dimer Anion Gap Estim Creat Clear Calc Estimated GFR Random Glucose Lactic Acid 2.3 H* Lactic Acid Fup @ 2Hr Calcium Magnesium Ferritin Total Bilirubin Direct Bilirubin AST ALT Alkaline Phosphatase Lactate Dehydrogenase Troponin I High Sens 42.5 H* C-Reactive Protein Total Protein Albumin Procalcitonin Urine Color Urine Appearance Urine pH Ur Specific [place] Urine Protein Urine Glucose (UA) Urine Ketones Urine Blood Urine Nitrite Ur Leukocyte Esterase Urine RBC Urine WBC Ur Squamous Epith Cells Urine Bacteria COVID-19 ([facility]) COVID-19 Clin Com 06/15/21 06/15/21 06/15/21 18:05 18:05 18:05 MCV MCH MCHC RDW Plt Count MPV Immature Gran % (Auto) Neut % (Auto) Lymph % (Auto) [place] % (Auto) Eos % (Auto) Baso % (Auto) Lymph # (Auto) [place] # (Auto) Eos # (Auto) Baso # (Auto) Abs Immat Gran (auto) Absolute Neuts (auto) Absolute Nucleated RBC Nucleated RBC % (auto) Smear Tech's Comments Whole Blood PT Whole Blood INR D-Dimer 818 Anion Gap Estim Creat Clear Calc Estimated GFR Random Glucose Lactic Acid Lactic Acid Fup @ 2Hr Calcium Magnesium Ferritin Cancelled Total Bilirubin Direct Bilirubin AST ALT Alkaline Phosphatase Lactate Dehydrogenase Cancelled Troponin I High Sens C-Reactive Protein Total Protein Albumin Procalcitonin Urine Color Urine Appearance Urine pH Ur Specific [place] Urine Protein Urine Glucose (UA) Urine Ketones Urine Blood Urine Nitrite Ur Leukocyte Esterase Urine RBC Urine WBC Ur Squamous Epith Cells Urine Bacteria COVID-19 ([facility]) Positive A COVID-19 Clin Com See Note 06/15/21 06/15/21 06/15/21 19:04 19:04 21:17 MCV MCH MCHC RDW Plt Count MPV Immature Gran % (Auto) Neut % (Auto) Lymph % (Auto) [place] % (Auto) Eos % (Auto) Baso % (Auto) Lymph # (Auto) [place] # (Auto) Eos # (Auto) Baso # (Auto) Abs Immat Gran (auto) Absolute Neuts (auto) Absolute Nucleated RBC Nucleated RBC % (auto) Smear Tech's Comments Whole Blood PT Whole Blood INR D-Dimer Anion Gap 17 Estim Creat Clear Calc 53.5 Estimated GFR 58 Random Glucose 89 Lactic Acid Lactic Acid Fup @ 2Hr 1.3 Calcium 8.5 Magnesium 2.6 Ferritin 2910 H Total Bilirubin 3.5 H Direct Bilirubin 2.0 H AST 129 H ALT 66 H Alkaline Phosphatase 83 Lactate Dehydrogenase 693 H Troponin I High Sens C-Reactive Protein Total Protein 7.3 Albumin 3.7 Procalcitonin 1.35 Urine Color Urine Appearance Urine pH Ur Specific [place] Urine Protein Urine Glucose (UA) Urine Ketones Urine Blood Urine Nitrite Ur Leukocyte Esterase Urine RBC Urine WBC Ur Squamous Epith Cells Urine Bacteria COVID-19 ([facility]) COVID-19 Clin Com 06/15/21 06/15/21 06/15/21 21:17 21:31 22:03 MCV MCH MCHC RDW Plt Count MPV Immature Gran % (Auto) Neut % (Auto) Lymph % (Auto) [place] % (Auto) Eos % (Auto) Baso % (Auto) Lymph # (Auto) [place] # (Auto) Eos # (Auto) Baso # (Auto) Abs Immat Gran (auto) Absolute Neuts (auto) Absolute Nucleated RBC Nucleated RBC % (auto) Smear Tech's Comments Whole Blood PT 13.8 H Whole Blood INR 1.2 H D-Dimer Anion Gap Estim Creat Clear Calc Estimated GFR Random Glucose Lactic Acid Lactic Acid Fup @ 2Hr Calcium Magnesium Ferritin Total Bilirubin Direct Bilirubin AST ALT Alkaline Phosphatase Lactate Dehydrogenase Troponin I High Sens 48.0 H* C-Reactive Protein Total Protein Albumin Procalcitonin Urine Color YELLOW Urine Appearance CLEAR Urine pH 6.5 Ur Specific [place] 1.010 Urine Protein 3+ H Urine Glucose (UA) NEG Urine Ketones 5 Urine Blood 3+ H Urine Nitrite NEG Ur Leukocyte Esterase NEG Urine RBC 1-4 Urine WBC 0 Ur Squamous Epith Cells NONE Urine Bacteria 1+ COVID-19 ([facility]) COVID-19 Clin Com 06/16/21 06/16/21 05:57 05:57 MCV 86.5 MCH 30.7 MCHC 35.5 RDW 15.8 Plt Count 89 L MPV 11.8 Immature Gran % (Auto) 0.8 H Neut % (Auto) 80.3 H Lymph % (Auto) 15.8 L [place] % (Auto) 3.0 Eos % (Auto) 0.0 Baso % (Auto) 0.1 Lymph # (Auto) 1.8 [place] # (Auto) 0.3 Eos # (Auto) 0.0 Baso # (Auto) 0.0 Abs Immat Gran (auto) 0.09 H Absolute Neuts (auto) 9.0 H Absolute Nucleated RBC 0.000 Nucleated RBC % (auto) 0.0 Smear Tech's Comments VERIFIED Whole Blood PT Whole Blood INR D-Dimer Anion Gap 14 Estim Creat Clear Calc 61.1 Estimated GFR > 60 Random Glucose 77 Lactic Acid Lactic Acid Fup @ 2Hr Calcium 7.7 L D Magnesium Ferritin 2168 H Total Bilirubin 2.5 H Direct Bilirubin 1.8 H AST 101 H ALT 52 H Alkaline Phosphatase 69 Lactate Dehydrogenase 567 H Troponin I High Sens C-Reactive Protein 15.72 H Total Protein 5.7 L D Albumin 3.0 L Procalcitonin Urine Color Urine Appearance Urine pH Ur Specific [place] Urine Protein Urine Glucose (UA) Urine Ketones Urine Blood Urine Nitrite Ur Leukocyte Esterase Urine RBC Urine WBC Ur Squamous Epith Cells Urine Bacteria COVID-19 ([facility]) COVID-19 Clin Com Quality Stroke Does the patient have a stroke diagnosis?: No VTE Prior VTE?: No VTE Risk Level:: Medical - moderate - high VTE Device Contraindication: Treatment Not Indicated VTE Drug Contraindication: N/A - Med Ordered
[2021-06-16] MEDS: Remdesivir 200 MG in 0.9 % Sodium Chloride 210 ML 105 MG IV (12:27)
--- NOTE | 2021-06-16 15:09 | W.PM.IDCN ---
History of Present Illness Data of Consult Service Date: 06/16/21 Requesting physician: Kaylah Cornejo Primary Care Provider: Madelin Akhtar MD HPI Reason for consult: COVID He presents to ER with three days of cough and cold and shortness of breath. He sees me for HIV care at [facility] and has been taking Biktarvy as directed He has not received COVID vaccine Review of Systems Review of Systems: Yes all other systems are reviewed and are negative PMFSH Past Medical History Medical History HIV (human immunodeficiency virus infection) Hypertension Family History Family history: reviewed and not pertinent Surgical History Surgical History No significant past surgical history Social History Social History Patient Tobacco Use Status: Current everyday Tobacco user Smoked in Last 30 Days: Yes Currently Displaying Signs/Symptoms of Drug Intoxication Withdrawal: No Advance Directives: No Advance Directives Information Provided: No Do you have thoughts of harming others: None Do you have a plan to hurt others: No Plan service: No Current occupational status: disabled Meds Allergies Allergy/AdvReac Type Severity Reaction Status Date / Time No Known Allergies Allergy Unverified 06/12/20 17:51 Active Medications: Current Medications Acetaminophen (Acetaminophen 325 Mg Tablet) 650 mg PO Q6H PRN PRN Reason: Pain, Mild (Pain Scale 1-3) Atenolol (Atenolol 100 Mg Tablet) 100 mg PO DAILY [facility]; Protocol Last Admin: 06/16/21 09:00 Dose: 100 mg Documented by: Bictegravir/Emtricitabine/Tenofovir (Bictegrav/Emtricit/Tenofov Ala 1 Tab Tablet) 1 tab PO DAILY [facility] Last Admin: 06/16/21 09:00 Dose: 1 tab Documented by: Dexamethasone Sodium Phosphate (Dexamethasone Sod Phosphate 4 Mg/Ml Vial) 6 mg IVPUSH DAILY [facility] Last Admin: 06/16/21 08:59 Dose: 6 mg Documented by: Docusate Sodium (Docusate Sodium 100 Mg Capsule) 100 mg PO DAILY PRN PRN Reason: Constipation Heparin Sodium (Porcine) (Heparin Sodium,Porcine 5,000 Unit/Ml Vial) 5,000 unit SUBCUT Q12H [facility] Last Admin: 06/16/21 10:47 Dose: 5,000 unit Documented by: Remdesivir 100 mg/ Sodium (Chloride) 230 mls @ 115 mls/hr IV Q24H [facility] Stop: 06/20/21 13:59 Ibuprofen (Ibuprofen 600 Mg Tablet) 600 mg PO Q8H PRN PRN Reason: Headache Lisinopril (Lisinopril 10 Mg Tablet) 10 mg PO DAILY [facility]; Protocol Last Admin: 06/16/21 08:59 Dose: 10 mg Documented by: Loratadine (Loratadine 10 Mg Tablet) 10 mg PO DAILY [facility] Last Admin: 06/16/21 08:59 Dose: 10 mg Documented by: Megestrol Acetate (Megestrol Acetate 400 Mg/10 Ml Oral.Susp) 800 mg PO DAILY [facility] Last Admin: 06/16/21 08:58 Dose: 800 mg Documented by: Ondansetron HCl (Ondansetron Hcl 4 Mg/2 Ml Vial) 4 mg IVPUSH Q8H PRN PRN Reason: Nausea and Vomiting Pharmacy Consult (Consult Rx Perform Med Rec) 1 each MISCELLANE ONCE PRN PRN Reason: Consult order Home Medications Medication Instructions Recorded Confirmed Last Taken Type atenolol 100 mg tablet 1 tab PO DAILY 06/15/21 06/15/21 Unknown History bictegravir 50 mg-emtricitabine 1 tab PO QAM 06/15/21 06/15/21 Unknown History 200 mg-tenofovir alafenam 25 mg tablet (Biktarvy) cetirizine 10 mg tablet 1 tab PO DAILY 06/15/21 06/15/21 Unknown History ibuprofen 600 mg tablet 600 mg PO Q8H PRN 06/15/21 06/15/21 Unknown History lisinopril 10 mg tablet 1 tab PO DAILY 06/15/21 06/15/21 Unknown History megestrol 400 mg/10 mL (40 mg/mL) 20 ml PO DAILY 06/15/21 06/15/21 Unknown History oral suspension Physical Exam Vital Signs: Vital Signs: Last Vital Signs Temp 99.2 F 06/16/21 11:30 Pulse 87 06/16/21 11:30 Resp 20 06/16/21 11:30 BP 107/54 L 06/16/21 11:30 Pulse Ox 90 L 06/16/21 12:53 Oxygen Flow Rate 5 06/16/21 00:49 Body Mass Index 26.9 Const: General: cooperative HENMT: Head: Yes normal to inspection Mouth: Normal oral and palatal mucosa present Eyes: General: appearance normal, both eyes and all related structures Pupils: Equal, round and reactive pupils present Resp: Effort & Inspection: able to speak in complete sentences Cardio: Rate: regular rate Rhythm: regular rhythm GI: Palpation (GI): nontender Skin: General skin exam: no rashes or lesions noted Neuro: Cranial nerves: Yes Equal, round and reactive pupils present Results Labs CBC & Chem 7: 06/16/21 05:57 06/16/21 05:57 Labs: Short CBC 06/15/21 06/16/21 Range/Units 18:05 05:57 WBC 11.0 H 11.1 H (4.8-10.8) X10*3/uL Hgb 12.7 L 11.8 L (14.0-18.0) g/dl Hct 36.6 L 33.2 L (42-52) % Plt Count TNP 89 L BMP 06/15/21 06/16/21 19:04 05:57 Sodium 134 L 133 L Potassium 3.5 3.0 L Chloride 97 100 Carbon Dioxide 24 22 BUN 13 11 Creatinine 1.28 1.12 Calcium 8.5 7.7 L D Liver Function 06/15/21 06/16/21 Range/Units 19:04 05:57 Total Bilirubin 3.5 H 2.5 H (0.0-1.0) mg/dL Direct Bilirubin 2.0 H 1.8 H (0.0-0.5) mg/dL AST 129 H 101 H (5-37) U/L ALT 66 H 52 H (0-40) U/L Alkaline Phosphatase 83 69 (39-117) U/L Albumin 3.7 3.0 L (3.5-5.0) g/dL Urine 06/15/21 Range/Units 22:03 Urine Color YELLOW Urine Appearance CLEAR Urine pH 6.5 (5.0-8.0) Ur Specific [place] 1.010 (1.005-1.025) Urine Protein 3+ H (NEG-TRACE) MG/DL Urine Glucose (UA) NEG (NEG) MG/DL Assessment and Plan (1) Sepsis: Status: Acute (2) Acute respiratory failure with hypoxia: Status: Acute (3) COVID-19: Status: Acute He has COVID of recent onset He has not been vaccinated Would give oxygen as needed Remdesivir Would give Dexamethasone 6 mg daily for 10 day No antibiotics Continue Biktarvy
--- NOTE | 2021-06-16 18:40 | PC.NURSE ---
Attempted to wean patient off of oxygen today. 5L this AM, able to wean to 3L, then patient maintained O2 SAT around 86%. Increased back to 5L, now satting 90%. Will pass to oncoming RN.
[2021-06-17] VITALS (7 sets, daily range): BP systolic 112–130; BP diastolic 60–78; PULSE 70–80; RESP 18–20; TEMP 36.1–36.8; O2SAT 93–100
[2021-06-17] MEDS: Heparin Sodium,Porcine 5,000 UNIT/ML VIAL 5000 UNIT SUBCUT ×2 (00:29→10:25)
[2021-06-17 09:16] LABS: Anion Gap 17 (12-20); Blood Urea Nitrogen 14 mg/dL (9-16); Calcium 8.4 mg/dL (8.4-10.2); Carbon Dioxide 21 mmol/L (22-29); Chloride 102 mmol/L (96-108); Creatinine Clr Calc Pharmacy 63.4; Estimated Glomerular Filt Rate > 60; Glucose Random 107 mg/dL (60-115); Potassium 3.7 mmol/L (3.3-5.1); Sodium 136 mmol/L (135-145)
[2021-06-17 09:41] LABS: Hematocrit 33.8 % (42-52); NRBC Pct Auto 0.2 /100WBC (0.0-0.2)
[2021-06-17 09:43] LABS: Hemoglobin 11.8 g/dl (14.0-18.0); Mean Corpuscular HGB Conc 34.9 g/dl (31.0-36.0); Mean Corpuscular Hemoglobin 30.4 pg (27.0-33.0); Mean Corpuscular Volume 87.1 fL (80-98); Mean Platelet Volume 13.4 fL (9.4-12.4); PLT CLUMP 1; Red Blood Count 3.88 X10*6/uL (4.60-5.80); Red Cell Distribution Width 16.1 % (11.0-16.0)
[2021-06-17 09:44] LABS: PLT ABN DIST 1; Platelet Count 102 X10*3/uL (160-400); White Blood Count 8.6 X10*3/uL (4.8-10.8)
[2021-06-17 09:48] LABS: D Dimer 748 NG/ML
[2021-06-17 09:53] LABS: Alanine Aminotransferase 54 U/L (0-40); Albumin Level 3.1 g/dL (3.5-5.0); Alkaline Phosphatase 71 U/L (39-117); Aspartate Amino Transferase 85 U/L (5-37); Bilirubin Direct 1.2 mg/dL (0.0-0.5); Bilirubin Total 1.5 mg/dL (0.0-1.0); C Reactive Protein 10.56 mg/dL (< or = 0.50); Total Protein 5.9 g/dL (6.5-8.0)
[2021-06-17] MEDS: Megestrol Acetate 400 MG/10 ML ORAL.SUSP 800 MG PO (10:24)
[2021-06-17] MEDS: dexAMETHasone sod phosphate 4 MG/ML VIAL 6 MG IVPUSH (10:25)
[2021-06-17] MEDS: Loratadine 10 MG TABLET PO (10:26)
[2021-06-17 10:34] LABS: Procalcitonin 0.71 ng/mL
--- NOTE | 2021-06-17 11:06 | MHC.CM.PN ---
Per ROUNDS discussion, Patient is not yet medically cleared for dc (IV Decadron, IV Remdesivir, 11L O2). Home is the goal for dc and CM will follow for possible need to adjust the dc plan.
--- NOTE | 2021-06-17 11:18 | P.PNIM_ITS ---
Subjective Subjective Date of Service: 06/17/21 Interval History: seen and examined this AM reports feeling better than yesterday despite O2 requirements increasing reports breathing a bit easier Review of Systems denies significant sob or cough no cp no abd pain, n/v Review of Systems: Yes all other systems are reviewed and are negative Physical Exam Vital Signs: Vital Signs: Last Vital Signs Temp 97.4 F 06/17/21 07:27 Pulse 73 06/17/21 09:50 Resp 19 06/17/21 07:27 BP 112/61 06/17/21 09:50 Pulse Ox 93 06/17/21 07:27 Oxygen Flow Rate 5 06/16/21 00:49 Body Mass Index 26.9 Const: Other: General - no acute distress, appears comfortable Cardiovascular - regular rate and rhythm, S1-S2 Lungs - no distress, requiring 11L [place] to keep saturations >90 Abdomen - soft, nontender, no rebound or guarding Extremities - no edema bilaterally Neuro - awake and alert, no focal deficits Objective Data Active Medications Acetaminophen (Acetaminophen 325 Mg Tablet) 650 mg PO Q6H PRN PRN Reason: Pain, Mild (Pain Scale 1-3) Atenolol (Atenolol 100 Mg Tablet) 100 mg PO DAILY [facility]; Protocol Last Admin: 06/17/21 09:50 Dose: Not Given Documented by: ABIDA Non-Admin Reason: Physician Held Med Benzonatate (Benzonatate 100 Mg Capsule) 200 mg PO TID PRN PRN Reason: Cough Bictegravir/Emtricitabine/Tenofovir (Bictegrav/Emtricit/Tenofov Ala 1 Tab Tablet) 1 tab PO DAILY [facility] Last Admin: 06/17/21 10:26 Dose: 1 tab Documented by: ABIDA Dexamethasone Sodium Phosphate (Dexamethasone Sod Phosphate 4 Mg/Ml Vial) 6 mg IVPUSH DAILY [facility] Last Admin: 06/17/21 10:25 Dose: 6 mg Documented by: ABIDA Docusate Sodium (Docusate Sodium 100 Mg Capsule) 100 mg PO DAILY PRN PRN Reason: Constipation Guaifenesin/Dextromethorphan (Guaifenesin Dm 100/10/5 Ml 5 Ml Syrup) 5 ml PO Q4H PRN PRN Reason: Cough Heparin Sodium (Porcine) (Heparin Sodium,Porcine 5,000 Unit/Ml Vial) 5,000 unit SUBCUT Q12H [facility] Last Admin: 06/17/21 10:25 Dose: 5,000 unit Documented by: ABIDA Remdesivir 100 mg/ Sodium (Chloride) 230 mls @ 115 mls/hr IV Q24H [facility] Stop: 06/20/21 13:59 Ibuprofen (Ibuprofen 600 Mg Tablet) 600 mg PO Q8H PRN PRN Reason: Headache Lisinopril (Lisinopril 10 Mg Tablet) 10 mg PO DAILY [facility]; Protocol Last Admin: 06/17/21 09:50 Dose: Not Given Documented by: ABIDA Non-Admin Reason: Physician Held Med Loratadine (Loratadine 10 Mg Tablet) 10 mg PO DAILY [facility] Last Admin: 06/17/21 10:26 Dose: 10 mg Documented by: ABIDA Megestrol Acetate (Megestrol Acetate 400 Mg/10 Ml Oral.Susp) 800 mg PO DAILY [facility] Last Admin: 06/17/21 10:24 Dose: 800 mg Documented by: ABIDA Ondansetron HCl (Ondansetron Hcl 4 Mg/2 Ml Vial) 4 mg IVPUSH Q8H PRN PRN Reason: Nausea and Vomiting Pharmacy Consult (Consult Rx Perform Med Rec) 1 each MISCELLANE ONCE PRN PRN Reason: Consult order Labs CBC & Chem 7: 06/17/21 09:05 06/17/21 07:43 Labs: Laboratory Results - last 24 hr 06/17/21 06/17/21 06/17/21 07:43 09:05 09:05 MCV 87.1 MCH 30.4 MCHC 34.9 RDW 16.1 H Plt Count 102 L MPV 13.4 H Absolute Nucleated RBC 0.020 H Nucleated RBC % (auto) 0.2 D-Dimer 748 Anion Gap 17 Estim Creat Clear Calc 63.4 Estimated GFR > 60 Random Glucose 107 D Calcium 8.4 D Total Bilirubin Direct Bilirubin AST ALT Alkaline Phosphatase C-Reactive Protein Total Protein Albumin Procalcitonin 06/17/21 06/17/21 09:05 09:05 MCV MCH MCHC RDW Plt Count MPV Absolute Nucleated RBC Nucleated RBC % (auto) D-Dimer Anion Gap Estim Creat Clear Calc Estimated GFR Random Glucose Calcium Total Bilirubin 1.5 H Direct Bilirubin 1.2 H AST 85 H ALT 54 H Alkaline Phosphatase 71 C-Reactive Protein 10.56 H Total Protein 5.9 L Albumin 3.1 L Procalcitonin 0.71 Microbiology Microbiology Results: Microbiology 06/15/21 19:04 Blood Culture - Preliminary Blood - Venous No growth after 24 hours. 06/15/21 19:04 Blood Culture - Preliminary Blood - Venous No growth after 24 hours. Assessment and Plan (1) Sepsis: Status: Acute (2) Acute respiratory failure with hypoxia: Status: Acute Assessment and Plan: 52 yo M with a PMH of HIV on HAART, unvaccinated for COVID who is admitted for: Acute Resp. Failure with Hypoxia and Viral sepsis -- secondary to COVID 19 (unvaccinated) Oxygen requirements increased significant over the last 24 hours -- was on 2-3L, now requiring 11L Trend inflammatory biomakers -- downtrending despite his increasing O2 requimrents continue Decadron 6mg IV Remdesivir added per ID recs Acute hepatitis due to viral sepsis LFTs improving HIV Biktarvy Thromboctyopenia due to viral sepsis improving HTN BP soft -- hold antihpyertensives for now Full Code DVT pptx -- change heparin to lovenox Quality Stroke Does the patient have a stroke diagnosis?: No VTE Prior VTE?: No VTE Risk Level:: Medical - moderate - high VTE Device Contraindication: Treatment Not Indicated VTE Drug Contraindication: N/A - Med Ordered
[2021-06-17] MEDS: Remdesivir 100 MG in 0.9 % Sodium Chloride 230 ML 115 MG IV (12:05)
--- NOTE | 2021-06-17 18:46 | PC.NURSE ---
Patient sitting on edge of bed for majority of the day. IV leaking, new #22 to [address] AC in place. Day 2/ of remdesivir. Unable to wean O2 from 11L [place] due to patient desatting occassionally to mid 80s. No further complaints or issues. Will pass to oncoming nurse.
[2021-06-17] MEDS: guaiFENesin DM 100/10/5 ML 5 ML SYRUP PO (19:29)
[2021-06-17] MEDS: Benzonatate 100 MG CAPSULE 200 MG PO (19:29)
[2021-06-17] MEDS: Enoxaparin Sodium 40 MG/0.4 ML SYRINGE SUBCUT (19:29)
[2021-06-18] VITALS (8 sets, daily range): BP systolic 119–142; BP diastolic 61–76; PULSE 67–90; RESP 18–20; TEMP 36.1–37; O2SAT 90–100
[2021-06-18] MEDS: guaiFENesin DM 100/10/5 ML 5 ML SYRUP PO (05:40)
[2021-06-18] MEDS: Loratadine 10 MG TABLET PO (09:01)
[2021-06-18] MEDS: Megestrol Acetate 400 MG/10 ML ORAL.SUSP 800 MG PO (09:01)
[2021-06-18] MEDS: dexAMETHasone sod phosphate 4 MG/ML VIAL 6 MG IVPUSH (09:02)
[2021-06-18 10:49] LABS: Hematocrit 33.2 % (42-52); Hemoglobin 11.5 g/dl (14.0-18.0); Mean Corpuscular HGB Conc 34.6 g/dl (31.0-36.0); Mean Corpuscular Hemoglobin 30.3 pg (27.0-33.0); Mean Corpuscular Volume 87.6 fL (80-98); Mean Platelet Volume 11.6 fL (9.4-12.4); NRBC Pct Auto 0.2 /100WBC (0.0-0.2); Platelet Count 141 X10*3/uL (160-400); Red Blood Count 3.79 X10*6/uL (4.60-5.80); Red Cell Distribution Width 16.5 % (11.0-16.0); White Blood Count 8.2 X10*3/uL (4.8-10.8)
[2021-06-18 10:59] LABS: D Dimer 606 NG/ML
--- NOTE | 2021-06-18 11:05 | P.PNIM_ITS ---
Subjective Subjective Date of Service: 06/18/21 Interval History: seen and examined this AM continues to feel better despite high o2 requires denies fevers or chills Review of Systems denies significant sob or cough no cp no abd pain, n/v Physical Exam Vital Signs: Vital Signs: Last Vital Signs Temp 97.0 F 06/18/21 07:56 Pulse 67 06/18/21 07:56 Resp 20 06/18/21 07:56 BP 126/62 06/18/21 07:56 Pulse Ox 97 06/18/21 07:56 Oxygen Flow Rate 5 06/16/21 00:49 Body Mass Index 26.9 Const: Other: General - no acute distress, appears comfortable Cardiovascular - regular rate and rhythm, S1-S2 Lungs - no distress, saturation 88-93 on 9L [place] Abdomen - soft, nontender, no rebound or guarding Extremities - no edema bilaterally Neuro - awake and alert, no focal deficits Objective Data Active Medications Acetaminophen (Acetaminophen 325 Mg Tablet) 650 mg PO Q6H PRN PRN Reason: Pain, Mild (Pain Scale 1-3) Atenolol (Atenolol 100 Mg Tablet) 100 mg PO DAILY [facility]; Protocol Last Admin: 06/17/21 09:50 Dose: Not Given Documented by: ABIDA Non-Admin Reason: Physician Held Med Benzonatate (Benzonatate 100 Mg Capsule) 200 mg PO TID PRN PRN Reason: Cough Last Admin: 06/17/21 19:29 Dose: 200 mg Documented by: VICKEY Bictegravir/Emtricitabine/Tenofovir (Bictegrav/Emtricit/Tenofov Ala 1 Tab Tablet) 1 tab PO DAILY [facility] Last Admin: 06/18/21 09:01 Dose: 1 tab Documented by: MICHAEL Dexamethasone Sodium Phosphate (Dexamethasone Sod Phosphate 4 Mg/Ml Vial) 6 mg IVPUSH DAILY [facility] Last Admin: 06/18/21 09:02 Dose: 6 mg Documented by: LESLYEEP Docusate Sodium (Docusate Sodium 100 Mg Capsule) 100 mg PO DAILY PRN PRN Reason: Constipation Enoxaparin Sodium (Enoxaparin Sodium 40 Mg/0.4 Ml Syringe) 40 mg SUBCUT Q24H [facility] Last Admin: 06/17/21 19:29 Dose: 40 mg Documented by: VICKEY Guaifenesin/Dextromethorphan (Guaifenesin Dm 100/10/5 Ml 5 Ml Syrup) 5 ml PO Q4H PRN PRN Reason: Cough Last Admin: 06/18/21 05:40 Dose: 5 ml Documented by: VICKEY Remdesivir 100 mg/ Sodium (Chloride) 230 mls @ 115 mls/hr IV Q24H [facility] Stop: 06/20/21 13:59 Last Infusion: 06/17/21 14:57 Dose: 0 mls/hr Documented by: ABIDA Ibuprofen (Ibuprofen 600 Mg Tablet) 600 mg PO Q8H PRN PRN Reason: Headache Lisinopril (Lisinopril 10 Mg Tablet) 10 mg PO DAILY [facility]; Protocol Last Admin: 06/17/21 09:50 Dose: Not Given Documented by: ABIDA Non-Admin Reason: Physician Held Med Loratadine (Loratadine 10 Mg Tablet) 10 mg PO DAILY [facility] Last Admin: 06/18/21 09:01 Dose: 10 mg Documented by: GALINDO-ASKEP Megestrol Acetate (Megestrol Acetate 400 Mg/10 Ml Oral.Susp) 800 mg PO DAILY [facility] Last Admin: 06/18/21 09:01 Dose: 800 mg Documented by: GALINDO-ASKLOERNE Ondansetron HCl (Ondansetron Hcl 4 Mg/2 Ml Vial) 4 mg IVPUSH Q8H PRN PRN Reason: Nausea and Vomiting Pharmacy Consult (Consult Rx Perform Med Rec) 1 each MISCELLANE ONCE PRN PRN Reason: Consult order Labs CBC & Chem 7: 06/18/21 10:34 06/17/21 07:43 Labs: Laboratory Results - last 24 hr 06/18/21 06/18/21 10:34 10:34 MCV 87.6 MCH 30.3 MCHC 34.6 RDW 16.5 H Plt Count 141 L D MPV 11.6 Absolute Nucleated RBC 0.020 H Nucleated RBC % (auto) 0.2 D-Dimer 606 Microbiology Microbiology Results: Microbiology 06/15/21 19:04 Blood Culture - Preliminary Blood - Venous No growth after 48 hours. 06/15/21 19:04 Blood Culture - Preliminary Blood - Venous No growth after 48 hours. Assessment and Plan (1) Sepsis: Status: Acute (2) Acute respiratory failure with hypoxia: Status: Acute Assessment and Plan: 52 yo M with a PMH of HIV on HAART, unvaccinated for COVID who is admitted for: Acute Resp. Failure with Hypoxia and Viral sepsis -- secondary to COVID 19 (unvaccinated) O2 requirements downtrending but still significant. tolerating [place] @ 9L with sats 88-93. Trend inflammatory biomakers -- pending today, but overall downtrending continue Decadron 6mg IV Remdesivir added per ID recs Acute hepatitis due to viral sepsis LFTs improving HIV Biktarvy Thromboctyopenia due to viral sepsis improving HTN BP soft -- hold antihpyertensives for now Full Code DVT pptx -- change heparin to lovenox Quality Stroke Does the patient have a stroke diagnosis?: No VTE Prior VTE?: No VTE Risk Level:: Medical - moderate - high VTE Device Contraindication: Treatment Not Indicated VTE Drug Contraindication: N/A - Med Ordered
[2021-06-18 11:12] LABS: Alanine Aminotransferase 60 U/L (0-40); Albumin Level 3.1 g/dL (3.5-5.0); Alkaline Phosphatase 76 U/L (39-117); Anion Gap 14 (12-20); Aspartate Amino Transferase 87 U/L (5-37); Bilirubin Direct 1.2 mg/dL (0.0-0.5); Bilirubin Total 1.6 mg/dL (0.0-1.0); Blood Urea Nitrogen 16 mg/dL (9-16); C Reactive Protein 4.83 mg/dL (< or = 0.50); Calcium 8.5 mg/dL (8.4-10.2); Carbon Dioxide 23 mmol/L (22-29); Chloride 104 mmol/L (96-108); Creatinine Clr Calc Pharmacy 69.9; Estimated Glomerular Filt Rate > 60; Glucose Random 131 mg/dL (60-115); Potassium 3.7 mmol/L (3.3-5.1); Sodium 137 mmol/L (135-145); Total Protein 5.9 g/dL (6.5-8.0)
[2021-06-18] MEDS: Remdesivir 100 MG in 0.9 % Sodium Chloride 230 ML 115 MG IV (13:27)
[2021-06-18] MEDS: Enoxaparin Sodium 40 MG/0.4 ML SYRINGE SUBCUT (21:38)
[2021-06-19 03:53] VITALS: BP 133/63; PULSE 68; RESP 19; TEMP 36.2; O2SAT 91
[2021-06-19 07:34] VITALS: BP 142/75; PULSE 65; RESP 18; TEMP 35.9; O2SAT 98
[2021-06-19] MEDS: dexAMETHasone sod phosphate 4 MG/ML VIAL 6 MG IVPUSH (10:21)
[2021-06-19] MEDS: Loratadine 10 MG TABLET PO (10:22)
[2021-06-19] MEDS: Megestrol Acetate 400 MG/10 ML ORAL.SUSP 800 MG PO (10:22)
[2021-06-19 11:31] VITALS: BP 132/67; PULSE 76; RESP 20; TEMP 36.4; O2SAT 98
--- NOTE | 2021-06-19 12:14 | MHC.CM.PN ---
Per ROUNDS discussion, Patient is not yet medically cleared for dc (9L O2).Home is the goal for dc and CM will follow for possible need to adjust the dc plan.
[2021-06-19] MEDS: Remdesivir 100 MG in 0.9 % Sodium Chloride 230 ML 115 MG IV (12:24)
--- NOTE | 2021-06-19 13:38 | P.PNIM_ITS ---
Subjective Subjective Date of Service: 06/19/21 Interval History: Seen and examined this morning Follow-up for COVID-19 pneumonia Continues to have cough. Oxygen requirement slightly down from yesterday. No shortness of breath at rest Desaturates with movement Review of Systems Review of Systems: Yes all other systems are reviewed and are negative Constitutional Constitutional: Denies chills and Denies fever(s) Cardiovascular Cardiovascular: Denies chest pain Gastrointestinal Gastrointestinal: Denies abdominal pain Physical Exam Vital Signs: Vital Signs: Last Vital Signs Temp 97.5 F 06/19/21 11:31 Pulse 76 06/19/21 11:31 Resp 20 06/19/21 11:31 BP 132/67 06/19/21 11:31 Pulse Ox 98 06/19/21 11:31 Oxygen Flow Rate 5 06/16/21 00:49 Body Mass Index 26.9 Const: Orientation/consciousness: patient oriented x3 HENMT: Head: Yes normocephalic and Yes atraumatic Eyes: Sclerae: sclerae normal Chest: Chest palpation & inspection: normal inspection of the chest Cardio: Rate: regular rate Rhythm: regular rhythm GI: Palpation (GI): Soft to palpation and nontender Neuro: General: patient oriented x3 Cranial nerves: Yes CN's II-XII intact bilaterally and Yes Bilaterally intact EOM present Objective Data Active Medications Acetaminophen (Acetaminophen 325 Mg Tablet) 650 mg PO Q6H PRN PRN Reason: Pain, Mild (Pain Scale 1-3) Atenolol (Atenolol 100 Mg Tablet) 100 mg PO DAILY [facility]; Protocol Last Admin: 06/17/21 09:50 Dose: Not Given Documented by: ABIDA Non-Admin Reason: Physician Held Med Benzonatate (Benzonatate 100 Mg Capsule) 200 mg PO TID PRN PRN Reason: Cough Last Admin: 06/17/21 19:29 Dose: 200 mg Documented by: VICKEY Bictegravir/Emtricitabine/Tenofovir (Bictegrav/Emtricit/Tenofov Ala 1 Tab Tablet) 1 tab PO DAILY [facility] Last Admin: 06/19/21 10:22 Dose: 1 tab Documented by: AYAAN Dexamethasone Sodium Phosphate (Dexamethasone Sod Phosphate 4 Mg/Ml Vial) 6 mg IVPUSH DAILY [facility] Last Admin: 06/19/21 10:21 Dose: 6 mg Documented by: AYAAN Docusate Sodium (Docusate Sodium 100 Mg Capsule) 100 mg PO DAILY PRN PRN Reason: Constipation Enoxaparin Sodium (Enoxaparin Sodium 40 Mg/0.4 Ml Syringe) 40 mg SUBCUT Q24H [facility] Last Admin: 06/18/21 21:38 Dose: 40 mg Documented by: VICKEY Guaifenesin/Dextromethorphan (Guaifenesin Dm 100/10/5 Ml 5 Ml Syrup) 5 ml PO Q4H PRN PRN Reason: Cough Last Admin: 06/18/21 05:40 Dose: 5 ml Documented by: VICKEY Remdesivir 100 mg/ Sodium (Chloride) 230 mls @ 115 mls/hr IV Q24H [facility] Stop: 06/20/21 13:59 Last Admin: 06/19/21 12:24 Dose: 115 mls/hr Documented by: AYAAN Ibuprofen (Ibuprofen 600 Mg Tablet) 600 mg PO Q8H PRN PRN Reason: Headache Lisinopril (Lisinopril 10 Mg Tablet) 10 mg PO DAILY [facility]; Protocol Last Admin: 06/17/21 09:50 Dose: Not Given Documented by: ABIDA Non-Admin Reason: Physician Held Med Loratadine (Loratadine 10 Mg Tablet) 10 mg PO DAILY [facility] Last Admin: 06/19/21 10:22 Dose: 10 mg Documented by: AYAAN Megestrol Acetate (Megestrol Acetate 400 Mg/10 Ml Oral.Susp) 800 mg PO DAILY [facility] Last Admin: 06/19/21 10:22 Dose: 800 mg Documented by: AYAAN Ondansetron HCl (Ondansetron Hcl 4 Mg/2 Ml Vial) 4 mg IVPUSH Q8H PRN PRN Reason: Nausea and Vomiting Pharmacy Consult (Consult Rx Perform Med Rec) 1 each MISCELLANE ONCE PRN PRN Reason: Consult order Labs CBC & Chem 7: 06/18/21 10:34 06/18/21 10:34 Assessment and Plan (1) Sepsis: Status: Acute (2) Acute respiratory failure with hypoxia: Status: Acute (3) COVID-19: Status: Acute Assessment and Plan: 52 yo M with a PMH of HIV on HAART, unvaccinated for COVID who is admitted for: Acute Resp. Failure with Hypoxia and Viral sepsis -- secondary to COVID 19 (unvaccinated) O2 requirements downtrending but still significant. tolerating [place] @ 9L with sats 88-93. Trend inflammatory biomakers -downtrending continue Decadron 6mg IV day 01/03 continue Remdesivir added per ID recs Elevated LFTs due to viral sepsis LFTs stable HIV Biktarvy Thromboctyopenia due to viral sepsis improving HTN BP controlled continue atenolol, lisinopril Full Code DVT pptx - lovenox Quality Stroke Does the patient have a stroke diagnosis?: No VTE Prior VTE?: No VTE Risk Level:: Medical - moderate - high VTE Device Contraindication: Treatment Not Indicated VTE Drug Contraindication: N/A - Med Ordered
[2021-06-19 15:20] VITALS: BP 126/72; PULSE 93; RESP 20; TEMP 35.9; O2SAT 94
[2021-06-19 19:24] VITALS: BP 125/59; PULSE 83; RESP 20; TEMP 36.4; O2SAT 92
[2021-06-19] MEDS: Enoxaparin Sodium 40 MG/0.4 ML SYRINGE SUBCUT (21:07)
[2021-06-19 23:23] VITALS: BP 152/72; PULSE 80; RESP 20; TEMP 36.1; O2SAT 90
[2021-06-20 04:00] VITALS: BP 129/64; PULSE 82; RESP 18; TEMP 36.7; O2SAT 98
[2021-06-20 08:00] VITALS: BP 128/68; PULSE 90; RESP 20; TEMP 36.4; O2SAT 92
[2021-06-20] MEDS: Ascorbic Acid 500 MG TABLET PO (09:30)
[2021-06-20] MEDS: Megestrol Acetate 400 MG/10 ML ORAL.SUSP 800 MG PO (09:30)
[2021-06-20] MEDS: Cholecalciferol (Vitamin D3) 25 MCG TABLET 50 MCG PO (09:30)
[2021-06-20] MEDS: Famotidine 20 MG TABLET 40 MG PO ×2 (09:30→20:56)
[2021-06-20] MEDS: dexAMETHasone sod phosphate 4 MG/ML VIAL 6 MG IVPUSH (09:31)
[2021-06-20] MEDS: Zinc Sulfate 220 MG CAPSULE PO (09:31)
[2021-06-20] MEDS: Loratadine 10 MG TABLET PO (09:31)
--- NOTE | 2021-06-20 11:41 | HO.PM.IMPN ---
Subjective Subjective Date of Service: 06/20/21 <SILKE Soliz - Last Filed: 06/20/21 11:46> 06/20/21 <Genoveva Rose MD - Last Filed: 06/20/21 16:21> Interval History: Seen and examined this morning Follow-up for COVID-19 pneumonia Patient reports improvement in breathing. Improvement in cough Still requiring 7-9 L of oxygen via nasal cannula <SILKE Soliz - Last Filed: 06/20/21 11:46> Review of Systems Review of Systems: Yes all other systems are reviewed and are negative <SILKE Soliz - Last Filed: 06/20/21 11:46> Constitutional Constitutional: Denies chills and Denies fever(s) <SILKE Soliz Last Filed: 06/20/21 11:46> Cardiovascular Cardiovascular: Denies chest pain <SILKE Soliz - Last Filed: 06/20/21 11:46> Gastrointestinal Gastrointestinal: Denies abdominal pain <SILKE Soliz - Last Filed: 06/20/21 11:46> Physical Exam Vital Signs: Vital Signs: Last Vital Signs Temp 97.5 F 06/20/21 08:00 Pulse 90 06/20/21 08:00 Resp 20 06/20/21 08:00 BP 128/68 06/20/21 08:00 Pulse Ox 92 06/20/21 08:00 Oxygen Flow Rate 5 06/16/21 00:49 Body Mass Index 26.9 <SILKE Soliz - Last Filed: 06/20/21 11:46> Const: Orientation/consciousness: patient oriented x3 <SILKE Soliz - Last Filed: 06/20/21 11:46> HENMT: Head: Yes normocephalic and Yes atraumatic <SILKE Soliz Last Filed: 06/20/21 11:46> Eyes: Sclerae: sclerae normal <SILKE Soliz Last Filed: 06/20/21 11:46> Chest: Chest palpation & inspection: normal inspection of the chest <SILKE Soliz Last Filed: 06/20/21 11:46> Resp: Other: diminished breath sounds <SILKE Sloiz Last Filed: 06/20/21 11:46> Effort & Inspection: no respiratory distress <SILKE Soliz Last Filed: 06/20/21 11:46> Cardio: Rate: regular rate <SILKE Soliz Last Filed: 06/20/21 11:46> Rhythm: regular rhythm <SILKE Soliz Last Filed: 06/20/21 11:46> GI: Palpation (GI): Soft to palpation and nontender <SILKE Soliz Last Filed: 06/20/21 11:46> Neuro: General: patient oriented x3 <SILKE Soliz Last Filed: 06/20/21 11:46> Cranial nerves: Yes CN's II-XII intact bilaterally and Yes Bilaterally intact EOM present <SILKE Soliz Last Filed: 06/20/21 11:46> Extrem: General: Yes no pedal edema <SILKE Soliz Last Filed: 06/20/21 11:46> Objective Data Active Medications Acetaminophen (Acetaminophen 325 Mg Tablet) 650 mg PO Q6H PRN PRN Reason: Pain, Mild (Pain Scale 1-3) Ascorbic Acid (Ascorbic Acid 500 Mg Tablet) 500 mg PO DAILY [facility] Last Admin: 06/20/21 09:30 Dose: 500 mg Documented by: ELDON Atenolol (Atenolol 100 Mg Tablet) 100 mg PO DAILY [facility]; Protocol Last Admin: 06/17/21 09:50 Dose: Not Given Documented by: ABIDA Non-Admin Reason: Physician Held Med Benzonatate (Benzonatate 100 Mg Capsule) 200 mg PO TID PRN PRN Reason: Cough Last Admin: 06/17/21 19:29 Dose: 200 mg Documented by: VICKEY Bictegravir/Emtricitabine/Tenofovir (Bictegrav/Emtricit/Tenofov Ala 1 Tab Tablet) 1 tab PO DAILY [facility] Last Admin: 06/20/21 09:30 Dose: 1 tab Documented by: ELDON Dexamethasone Sodium Phosphate (Dexamethasone Sod Phosphate 4 Mg/Ml Vial) 6 mg IVPUSH DAILY [facility] Stop: 06/25/21 09:01 Last Admin: 06/20/21 09:31 Dose: 6 mg Documented by: ELDON Docusate Sodium (Docusate Sodium 100 Mg Capsule) 100 mg PO DAILY PRN PRN Reason: Constipation Enoxaparin Sodium (Enoxaparin Sodium 40 Mg/0.4 Ml Syringe) 40 mg SUBCUT Q24H [facility] Last Admin: 06/19/21 21:07 Dose: 40 mg Documented by: LAURA Famotidine (Famotidine 20 Mg Tablet) 40 mg PO BID [facility] Last Admin: 06/20/21 09:30 Dose: 40 mg Documented by: ELDON Guaifenesin/Dextromethorphan (Guaifenesin Dm 100/10/5 Ml 5 Ml Syrup) 5 ml PO Q4H PRN PRN Reason: Cough Last Admin: 06/18/21 05:40 Dose: 5 ml Documented by: VICKEY Remdesivir 100 mg/ Sodium (Chloride) 230 mls @ 115 mls/hr IV Q24H [facility] Stop: 06/20/21 13:59 Last Infusion: 06/19/21 14:59 Dose: 0 mls/hr Documented by: BROErika Ibuprofen (Ibuprofen 600 Mg Tablet) 600 mg PO Q8H PRN PRN Reason: Headache Lisinopril (Lisinopril 10 Mg Tablet) 10 mg PO DAILY [facility]; Protocol Last Admin: 06/17/21 09:50 Dose: Not Given Documented by: ABIDA Non-Admin Reason: Physician Held Med Loratadine (Loratadine 10 Mg Tablet) 10 mg PO DAILY [facility] Last Admin: 06/20/21 09:31 Dose: 10 mg Documented by: ELDON Megestrol Acetate (Megestrol Acetate 400 Mg/10 Ml Oral.Susp) 800 mg PO DAILY [facility] Last Admin: 06/20/21 09:30 Dose: 800 mg Documented by: ELDON Ondansetron HCl (Ondansetron Hcl 4 Mg/2 Ml Vial) 4 mg IVPUSH Q8H PRN PRN Reason: Nausea and Vomiting Pharmacy Consult (Consult Rx Perform Med Rec) 1 each MISCELLANE ONCE PRN PRN Reason: Consult order Vitamin D (Cholecalciferol (Vitamin D3) 25 Mcg Tablet) 50 mcg PO DAILY [facility] Last Admin: 06/20/21 09:30 Dose: 50 mcg Documented by: ELDON Zinc Sulfate (Zinc Sulfate 220 Mg Capsule) 220 mg PO DAILY [facility] Last Admin: 06/20/21 09:31 Dose: 220 mg Documented by: ELDON <SILKE Soliz - Last Filed: 06/20/21 11:46> Labs CBC & Chem 7: : 06/18/21 10:34 06/18/21 10:34 <SILKE Soliz - Last Filed: 06/20/21 11:46> Assessment and Plan (1) Acute respiratory failure with hypoxia: Status: Acute <SILKE Soliz Last Filed: 06/20/21 11:46> (2) COVID-19: Status: Acute <SILKE Soliz Last Filed: 06/20/21 11:46> Assessment and Plan: 52 yo M with a PMH of HIV on HAART, unvaccinated for COVID who is admitted for: Acute Resp. Failure with Hypoxia and Viral sepsis -- secondary to COVID 19 (unvaccinated) O2 requirements downtrending but still significant. tolerating Donovan NC @ 9L - continue to wean as tolerated Trend inflammatory biomakers -downtrending continue Decadron 6mg IV day 02/02 continue Remdesivir added per ID recs Elevated LFTs due to viral sepsis LFTs stable HIV Biktarvy Thromboctyopenia due to viral sepsis improving HTN BP controlled continue atenolol, lisinopril Full Code DVT pptx - lovenox Attending. Dr. Rose <SILKE Soliz - Last Filed: 06/20/21 11:46> Quality Stroke Does the patient have a stroke diagnosis?: No <SILKE Soliz Last Filed: 06/20/21 11:46> VTE Prior VTE?: No <SILKE Soliz - Last Filed: 06/20/21 11:46> VTE Risk Level:: Medical - moderate - high <SILKE Soliz Last Filed: 06/20/21 11:46> VTE Device Contraindication: Treatment Not Indicated <SILKE Soliz Last Filed: 06/20/21 11:46> VTE Drug Contraindication: N/A - Med Ordered <SILKE Soliz - Last Filed: 06/20/21 11:46>
[2021-06-20 12:00] VITALS: BP 143/75; PULSE 84; RESP 22; TEMP 36.4; O2SAT 97
[2021-06-20] MEDS: Remdesivir 100 MG in 0.9 % Sodium Chloride 230 ML 115 MG IV (13:06)
[2021-06-20 15:06] VITALS: BP 145/73; PULSE 81; RESP 18; TEMP 36.6; O2SAT 97
[2021-06-20 19:24] VITALS: BP 140/65; PULSE 92; RESP 18; TEMP 37.1; O2SAT 89
[2021-06-20] MEDS: Enoxaparin Sodium 40 MG/0.4 ML SYRINGE SUBCUT (20:55)
[2021-06-20 23:31] VITALS: BP 146/70; PULSE 82; RESP 18; TEMP 36.1; O2SAT 90
[2021-06-21] VITALS (8 sets, daily range): BP systolic 123–146; BP diastolic 69–72; PULSE 70–110; RESP 18–20; TEMP 36.3–36.9; O2SAT 82–100
[2021-06-21 07:32] LABS: Hemoglobin 11.1 g/dl (14.0-18.0); Mean Corpuscular HGB Conc 34.7 g/dl (31.0-36.0); Mean Corpuscular Hemoglobin 30.1 pg (27.0-33.0); Mean Corpuscular Volume 86.7 fL (80-98); Mean Platelet Volume 12.6 fL (9.4-12.4); Platelet Count 217 X10*3/uL (160-400); Red Blood Count 3.69 X10*6/uL (4.60-5.80); Red Cell Distribution Width 16.4 % (11.0-16.0); White Blood Count 12.5 X10*3/uL (4.8-10.8)
[2021-06-21 07:56] LABS: Anion Gap 12 (12-20); Blood Urea Nitrogen 13 mg/dL (9-16); C Reactive Protein 3.23 mg/dL (< or = 0.50); Calcium 8.1 mg/dL (8.4-10.2); Carbon Dioxide 22 mmol/L (22-29); Chloride 107 mmol/L (96-108); Creatinine Clr Calc Pharmacy 76.9; Estimated Glomerular Filt Rate > 60; Glucose Random 107 mg/dL (60-115); Potassium 3.4 mmol/L (3.3-5.1); Sodium 138 mmol/L (135-145)
--- NOTE | 2021-06-21 10:48 | P.DS_ITS ---
DS: Providers Provider Date of Service: 06/21/21 Date of admission: 06/15/21 21:43 Primary care physician: Madelin Akhtar MD Consults: 06/16/21 07:57 Consult to Infectious Diseases Routine Consulting Provider: Luly Lee Reason for consultation: covid 19 Has provider been notified: No Attending physician on discharge: Genoveva Rose Discharging clinician: Madelin Hoffmann DS: Diagnosis Discharge Diagnosis (1) Acute respiratory failure with hypoxia: Status: Acute (2) COVID-19: Status: Acute (3) Elevated liver enzymes: Status: Acute (4) HIV (human immunodeficiency virus infection): Status: Acute DS: Summary Hospital Course Hospital Course: From H&P on day of admission 55-year-old male with past medical history of HIV presents to the hospital complaining of shortness breast as well as cough for the past few days.? Patient was also complaining of right-sided chest pain that is constant, nonradiating, 4/10, no alleviating or exacerbating factors.? Patient is non vaccinated against COVID.? And is not sure if he has been around any sick contacts.? Her denies any palpitations, no headache or change in vision, no dizziness.? No abdominal pain nausea or vomiting, no diarrhea or constipation, urinary symptoms and no lower extremity edema. On arrival to the ED patient noted to be hypoxic with an O2 level of 88% on room air, has temp of a 100.1?, heart rate of 93, respiratory rate of 18, blood pressure 109/60 For WBC count of 11, hemoglobin 12.7 PT of 13.8, INR of 1.2, D-dimer of 818, sodium of 134, lactic acid of 2.3 improved after IV fluids, ferritin of 2910, total bili of 3.5, AST of 129, ALT of 66, LDH of 693, troponin initially of 42.5 that increased to 48, COVID-19 positive ?patient underwent CT angiogram which was negative for PE but showed patchy bilateral airspace disease with peripheral predominant most consistent with superimposed atypical or viral pneumonia Acute respiratory failure with hypoxia secondary to COVID-19 pneumonia The patient was diagnosed with COVID-19 on the day of admission June 15. He is unvaccinated. He was admitted to the hospital and started on supplemental oxygen, IV dexamethasone. He was seen in consultation by Infectious Disease who recommended remdesivir. He completed his course of remdesivir while in the hospital. He is currently asymptomatic, with no shortness of breath, mild cough, able to ambulate with out difficulty breathing. This morning he was able to be weaned off of oxygen briefly. However a short time later his oxygen dropped into the high 80s and he had to have supplemental oxygen resumed. The patient reports he needs to return home today in order to assist his at home therefore he was evaluated by respiratory therapy for home oxygen. He became hypoxic with o2 sat less than 88 and he qualifies for 3L continuous o2. Respiratory therapy will set up home oxygen therapy. He is encouraged to return to the hospital if he become short of breath. He should isolate per CDC guidelines, 10 days from testing positive (06/15) LFTs were noted to be elevated. This appears somewhat chronic but was slightly above baseline. This could be related to underlying viral infection. Would recommend outpatient follow-up for repeat LFTs as patient is also on Biktarvy which can affect liver function. Time Spent with Patient Time attestation: Total time spent providing and/or coordinating discharge services: Discharge coordination time: Greater than 30 minutes Quality: Stroke Does the patient have a stroke diagnosis?: No Physical Exam Vital Signs: Vital Signs: Last Vital Signs Temp 97.8 F 06/21/21 08:00 Pulse 82 06/21/21 08:00 Resp 20 06/21/21 08:00 BP 123/69 06/21/21 08:00 Pulse Ox 86 L 06/21/21 10:39 Oxygen Flow Rate 5 06/16/21 00:49 Body Mass Index 26.9 Const: Orientation/consciousness: patient oriented x3 HENMT: Head: Yes normocephalic and Yes atraumatic Eyes: Sclerae: sclerae normal Chest: Chest palpation & inspection: normal inspection of the chest Resp: Other: diminished breath sounds Effort & Inspection: no respiratory distress Cardio: Rate: regular rate Rhythm: regular rhythm GI: Palpation (GI): Soft to palpation and nontender Neuro: General: patient oriented x3 Cranial nerves: Yes CN's II-XII intact bilaterally and Yes Bilaterally intact EOM present Extrem: General: Yes no pedal edema DS: Data Data Completed and Pending Labs on day of discharge: Laboratory Results - last 24 hr 06/21/21 06/21/21 06:53 06:53 WBC 12.5 H RBC 3.69 L Hgb 11.1 L Hct 32.0 L MCV 86.7 MCH 30.1 MCHC 34.7 RDW 16.4 H Plt Count 217 D MPV 12.6 H Absolute Nucleated RBC 0.000 Nucleated RBC % (auto) 0.0 Sodium 138 Potassium 3.4 Chloride 107 Carbon Dioxide 22 Anion Gap 12 BUN 13 Creatinine 0.89 Estim Creat Clear Calc 76.9 Estimated GFR > 60 Random Glucose 107 Calcium 8.1 L C-Reactive Protein 3.23 H Discharge Plan Discharge Patient Disposition: Home, Self-Care Discharge Diagnosis: Acute respiratory failure with hypoxia pneumonia secondary to COVID-19 elevated liver enzymes Referrals: Madelin Akhtar MD [Primary Care Provider] - 1 Week Discharge Medications: New dexamethasone 6 mg tablet 6 mg PO DAILY 5 Days Qty: 5 RF: 0 benzonatate [Tessalon Perles] 100 mg capsule 100 mg PO TID PRN (Reason: cough) Qty: 14 RF: 0 Continued megestrol 400 mg/10 mL (40 mg/mL) suspension 20 ml PO DAILY RF: 0 cetirizine 10 mg tablet 1 tab PO DAILY RF: 0 atenolol 100 mg tablet 1 tab PO DAILY RF: 0 lisinopril 10 mg tablet 1 tab PO DAILY RF: 0 ibuprofen 600 mg tablet 600 mg PO Q8H PRN (Reason: Headache) RF: 0 Biktarvy 50-200-25 mg tablet 1 tab PO QAM RF: 0 Discharge Orders: Discharge Order (Routine); Ordered 06/21/21 Ordered By: Madelin Hoffmann Activity on Discharge: As tolerated Stand Alone Forms: Patient Portal Discharge page Care Plan Goals: Stay healthy and out of the hospital Health Concerns: Pneumonia secondary to COVID 19 Acute respiratory failure with hypoxia Elevated LFTs Plan of Treatment: Isolate per CDC guidelines for at least 10 days since positive test (06/15) CDC Guidelines for home isolation: - Stay away from others - Limit contact with pets and animals: If you must care for a pet, wash your hands before and after interacting with them - Wear a mask if you are sick - Cover your mouth and nose with a tissue when you cough or sneeze. Dispose of tissues in a lined trash can and wash your hands immediately with soap and water for at least 20 seconds. If soap and water are not available, clean hands with alcohol-based hand caustic liquor maker that contains at least 60% alcohol. - Clean your hands often with soap and water for at least 20 seconds - Avoid touching your eyes, nose and mouth with unwashed hands - Do not share dishes, drinking glasses, cups, eating utensils, towels, or bedding with other people in your home. After using these items, wash them thoroughly with soap and water or put in the pad machine feeder. - Clean high-touch surfaces in your isolation area (???sick room??? and bathroom) every day; let a caregiver clean and disinfect high-touch surfaces in other areas of the home. Clean the area or item with soap and water or another detergent if it is dirty. Then, use a household disinfectant. Seek medical attention, but call first: - Seek medical care right away if your illness is worsening (for example, if you have difficulty breathing). - Call your doctor before going in: Before going to the doctor???s office or emergency room, call ahead and tell them your symptoms. They will tell you what to do. - If possible, put on a facemask before you enter the building. If you can't put on a facemask, try to keep a safe distance from other people (at least 6 feet away). This will help protect the people in the office or waiting room. - Follow care instructions from your healthcare provider and local health de partment: Your local health authorities will give instructions on checking your symptoms and reporting information. Emergency warning signs for COVID-19: - Difficulty breathing or shortness of breath - Persistent pain or pressure in the chest - New confusion or inability to arouse - Bluish lips or face Call to schedule follow up appointment with your PCP You should have your liver function re-checked If you become short of breath please return to the emergency room Qualifies for 3L continues home o2 due to hypoxia Assessment: Admitted secondary to hypoxia/COVID-19 pneumonia now stable on room air
[2021-06-21] MEDS: dexAMETHasone sod phosphate 4 MG/ML VIAL 6 MG IVPUSH (10:52)
[2021-06-21] MEDS: Loratadine 10 MG TABLET PO (10:53)
[2021-06-21] MEDS: Ascorbic Acid 500 MG TABLET PO (10:53)
[2021-06-21] MEDS: Zinc Sulfate 220 MG CAPSULE PO (10:53)
[2021-06-21] MEDS: Cholecalciferol (Vitamin D3) 25 MCG TABLET 50 MCG PO (10:53)
[2021-06-21] MEDS: Megestrol Acetate 400 MG/10 ML ORAL.SUSP 800 MG PO (10:54)
[2021-06-21] MEDS: Famotidine 20 MG TABLET 40 MG PO (11:05)
--- NOTE | 2021-06-21 11:17 | MHC.CM.PN ---
order for home, self-care. CM acknowledge order.
== END 2021-06-21 15:15 | disposition home or self-care (01) | DRG 720 ==
LOC: HO.ED 21:24 → HO.EDOVER 22:27 → HO.IMC 06-16 00:09
PROVIDERS: Family Medicine; Nurse Practitioner Acute Care; Nurse Practitioner Family; Admitting Provider Internal Medicine; Emergency Provider Emergency Medicine; PCP Family Medicine; Visit Provider Physician Assistant Medical
DX: A41.89 Other specified sepsis (principal); U07.1 COVID-19; J96.01 Acute respiratory failure with hypoxia; R74.01 Elevation of levels of liver transaminase levels; B19.9 Unspecified viral hepatitis without hepatic coma; I10 Essential (primary) hypertension; D69.6 Thrombocytopenia, unspecified; J12.82 Pneumonia due to coronavirus disease 2019; Z21 Asymptomatic human immunodeficiency virus [HIV] infection status; F17.210 Nicotine dependence, cigarettes, uncomplicated; Z71.6 Tobacco abuse counseling; Z79.1 Long term (current) use of non-steroidal anti-inflammatories (NSAID); Z79.899 Other long term (current) drug therapy
CPT/HCPCS: 36415; 71045; 71275; 80048; 80076; 81001; 82728; 83605; 83615; 83735; 84145; 84484; 85025; 85027; 85379; 85610; 86140; 87040; 87635; 93005; 96365; 96367; 99285; J0456; J0696; J1100; J1650; J3490; Q9967

== ENCOUNTER 2023-03-09 12:20 | Outpatient (REF) | payer MEDICAID, SELFPAY ==
--- NOTE | ~2023-03-09 | XR_ITS ---
EXAMINATION: XR knee RT 2V, XR knee standing BI CLINICAL INFORMATION: Reason for Exam M25.569 - Pain in unspecified knee COMPARISON: Knee radiographs 05/02/2015 TECHNIQUE: 1 view of the bilateral knees and 2 views of the right knee FINDINGS: RIGHT KNEE: No acute fracture or dislocation. Mild degenerative changes of the knee with borderline loss of medial compartment joint space and small medial and patellofemoral compartment osteophytes, progressed from prior. Mild genu varum. No joint effusion. Atherosclerotic vascular calcification. LEFT KNEE: No acute fracture or dislocation appreciated on this limited single view. Moderate degenerative changes of the medial compartment of the knee progressed from prior with loss of medial compartment joint space and medial compartment osteophytes. Mild genu varum. Atherosclerotic vascular calcification. XR/XR knee RT 2V IMPRESSION: RIGHT KNEE: Mild degenerative changes of the knee progressed from prior with mild genu varum. LEFT KNEE: Moderate degenerative changes of the medial compartment of the knee progressed from prior with mild genu varum.
--- NOTE | ~2023-03-09 | XR_ITS ---
EXAMINATION: XR knee RT 2V, XR knee standing BI CLINICAL INFORMATION: Reason for Exam M25.569 - Pain in unspecified knee COMPARISON: Knee radiographs 05/02/2015 TECHNIQUE: 1 view of the bilateral knees and 2 views of the right knee FINDINGS: RIGHT KNEE: No acute fracture or dislocation. Mild degenerative changes of the knee with borderline loss of medial compartment joint space and small medial and patellofemoral compartment osteophytes, progressed from prior. Mild genu varum. No joint effusion. Atherosclerotic vascular calcification. LEFT KNEE: No acute fracture or dislocation appreciated on this limited single view. Moderate degenerative changes of the medial compartment of the knee progressed from prior with loss of medial compartment joint space and medial compartment osteophytes. Mild genu varum. Atherosclerotic vascular calcification. XR/XR knee standing BI IMPRESSION: RIGHT KNEE: Mild degenerative changes of the knee progressed from prior with mild genu varum. LEFT KNEE: Moderate degenerative changes of the medial compartment of the knee progressed from prior with mild genu varum.
== END 2023-03-09 12:21 | disposition home or self-care (01) ==
LOC: HO.HOSX 12:20
PROVIDERS: Visit Provider Physician Assistant
DX: M17.11 Unilateral primary osteoarthritis, right knee (principal); M25.562 Pain in left knee
CPT/HCPCS: 20610; 73560; 73565; 99202; J1040

== ENCOUNTER 2024-05-21 13:54 | Outpatient (REF) | payer MEDICAID, SELFPAY ==
[2024-05-21 16:18] LABS: Basophils Absolute Auto 0.1 X10*3/uL (0.0-0.2); Basophils Percent Auto 1.2 % (0-2); Eosinophils Percent Auto 0.3 % (0-4); Hematocrit 39.5 % (42.0-52.0); Hemoglobin 13.3 g/dl (14.0-18.0); Imm Gran Abs Auto 0.03 X10*3/uL (0.00-0.03); Imm Gran Pct Auto 0.3 % (0.0-0.4); Lymphocytes Absolute Auto 5.3 X10*3/uL (1.2-4.9); MANUAL DIFF FLAG SCAN; Mean Corpuscular HGB Conc 33.7 g/dl (31.0-36.0); Mean Corpuscular Hemoglobin 29.9 pg (27.0-33.0); Mean Corpuscular Volume 88.8 fL (80.0-98.0); Mean Platelet Volume 12.5 fL (9.4-12.4); Monocytes Absolute Auto 0.6 X10*3/uL (0.1-1.2); Monocytes Percent Auto 6.8 % (2-11); Neutrophils Absolute Auto 3.4 x10*3/uL (2.0-8.3); Neutrophils Percent Auto 35.4 % (45-73); Platelet Count 194 X10*3/uL (160-400); Red Blood Count 4.45 X10*6/uL (4.60-5.80); Red Cell Distribution Width 15.5 % (11.0-16.0); SCAN SMEAR FLAG 1; White Blood Count 9.5 X10*3/uL (4.8-10.8)
[2024-05-21 16:50] LABS: Alanine Aminotransferase 51 U/L (0-40); Albumin Level 3.9 g/dL (3.5-5.0); Alkaline Phosphatase 105 U/L (39-117); Anion Gap 13 (12-20); Aspartate Amino Transferase 78 U/L (5-37); Bilirubin Total 0.9 mg/dL (0.0-1.0); Blood Urea Nitrogen 12 mg/dL (9-16); Calcium 9.3 mg/dL (8.4-10.2); Carbon Dioxide 25 mmol/L (22-29); Chloride 106 mmol/L (96-108); Cholesterol 120 mg/dL (<200); Estimated Glomerular Filt Rate > 60; Glucose Random 86 mg/dL (60-115); HDL Cholesterol 27 mg/dL (>40); LDL Cholesterol Calculated 74 mg/dL (<100); Potassium 3.8 mmol/L (3.3-5.1); Sodium 140 mmol/L (135-145); Total Protein 7.7 g/dL (6.5-8.0); Triglycerides 96 mg/dL (<150)
[2024-05-21 16:54] LABS: SLIDE REVIEW VERIFIED
[2024-05-21 18:48] LABS: Reflex LDLD? No
[2024-05-22 04:23] LABS: Syphilis Screen Nonreactive (Nonreactive)
[2024-05-22 05:00] LABS: HBS Num1 2.27 mIU/mL (0-7.99); HBc Num1 0.73 S/CO (0.00-0.79); HBsAGNum1 0.36 S/CO (0.00-0.99); Hepatitis A Antibody IgG REACTIVE (Nonreactive); Hepatitis B Core Antibody Nonreactive (Nonreactive); Hepatitis B Surface Antigen Negative (Negative); ~Hepatitis B Surface Antibody NONREACTIVE (Nonreactive)
[2024-05-22 05:17] LABS: Estimated Average Glucose 100 mg/dL; Hemoglobin A1c % 5.1 % (<6.0)
[2024-05-22 13:53] LABS: HIV RNA PCR Qn Copies 89800 copies/mL (NOT DETECTED); HIV RNA PCR Qn Log Copies 4.95 (NOT DETECTED)
[2024-05-22 15:23] LABS: HCV Log PCR <1.18 NOT DETECTED Log IU/mL (NOT DETECTED); HepC Viral Load <15 NOT DETECTED IU/mL (NOT DETECTED)
[2024-05-23 22:47] LABS: TS Negative Control Passed; TS Panel A 0; TS Panel B 0; TS Positive Control Passed; TSpotTB Negative (Negative)
[2024-05-24 18:13] LABS: Absolute CD3 Count 3283 cells/uL (840-3060); Absolute CD4 Count 454 cells/uL (490-1740); Absolute CD8 Count 2892 cells/uL (180-1170); Absolute Lymphocytes 3942 cells/uL (850-3900); CD4 CD8 Ratio 0.16 (0.86-5.00); Percent CD3 Cells 83 % (57-85); Percent CD4 Cells 12 % (30-61); Percent CD8 Cells 73 % (12-42)
[2024-05-25 10:44] LABS: Hepatitis C Genotype Not Detected
== END 2024-05-21 13:55 | disposition home or self-care (01) ==
LOC: HO.HHCL 13:54
PROVIDERS: Visit Provider Student in an Organized Health Care Education/Training Program
DX: B20 Human immunodeficiency virus [HIV] disease (principal)
CPT/HCPCS: 36415; 80053; 80061; 83036; 85025; 86359; 86360; 86481; 86704; 86706; 86708; 86780; 87340; 87522; 87536; 87902

== ENCOUNTER 2024-07-02 12:26 | Outpatient (REF) | payer MEDICAID, SELFPAY ==
[2024-07-02 13:50] LABS: Estimated Average Glucose 94 mg/dL; Hemoglobin A1C 97.8634 umol/L; Hemoglobin A1c % 4.9 % (<6.0); Total Hemoglobin (HGBA1C) 3240.4432 umol/L
[2024-07-02 13:59] LABS: Alanine Aminotransferase 18 U/L (0-40); Alkaline Phosphatase 118 U/L (39-117); Anion Gap 8 (12-20); Aspartate Amino Transferase 20 U/L (5-37); Bilirubin Direct 0.3 mg/dL (0.0-0.5); Bilirubin Total 0.7 mg/dL (0.0-1.0); Blood Urea Nitrogen 14 mg/dL (9-16); Calcium 8.8 mg/dL (8.4-10.2); Carbon Dioxide 28 mmol/L (22-29); Chloride 110 mmol/L (96-108); Cholesterol 139 mg/dL (<200); Estimated Glomerular Filt Rate > 60; Glucose Random 90 mg/dL (60-115); HDL Cholesterol 52 mg/dL (>40); LDL Cholesterol Calculated 76 mg/dL (<100); Potassium 3.8 mmol/L (3.3-5.1); Sodium 142 mmol/L (135-145); Total Protein 7.1 g/dL (6.5-8.0); Triglycerides 59 mg/dL (<150)
[2024-07-02 14:09] LABS: Creatinine Urine 42.99 mg/dL; Microalbum/Creatinine Ratio Ur 20.9 ug/mg cr (<30)
[2024-07-02 14:47] LABS: CT PCR NOT DETECTED (Not Detect.); NG PCR NOT DETECTED (Not Detect.)
== END 2024-07-02 12:27 | disposition home or self-care (01) ==
LOC: HO.HHCL 12:26
PROVIDERS: Student in an Organized Health Care Education/Training Program; Visit Provider Family Medicine
DX: E11.9 Type 2 diabetes mellitus without complications (principal); B20 Human immunodeficiency virus [HIV] disease; Z21 Asymptomatic human immunodeficiency virus [HIV] infection status
CPT/HCPCS: 36415; 80048; 80061; 80076; 82043; 82570; 83036; 87491; 87591; 88112

== ENCOUNTER 2024-08-09 15:32 | Outpatient (REF) | payer MEDICAID, SELFPAY ==
[2024-08-11 13:43] LABS: HIV RNA PCR Qn Copies 36 copies/mL (NOT DETECTED); HIV RNA PCR Qn Log Copies 1.56 (NOT DETECTED)
== END 2024-08-09 15:33 | disposition home or self-care (01) ==
LOC: HO.HHCL 15:32
PROVIDERS: Visit Provider Internal Medicine
DX: Z21 Asymptomatic human immunodeficiency virus [HIV] infection status (principal)
CPT/HCPCS: 36415; 87536

== ENCOUNTER 2025-01-09 11:56 | Outpatient (REF) | payer MEDICAID, SELFPAY ==
[2025-01-09 13:22] LABS: MANUAL DIFF FLAG NO
[2025-01-09 13:31] LABS: Basophils Percent Auto 0.3 % (0-2); Eosinophils Absolute Auto 0.1 X10*3/uL (0.0-0.4); Eosinophils Percent Auto 0.8 % (0-4); Hematocrit 39.4 % (42.0-52.0); Hemoglobin 12.8 g/dl (14.0-18.0); Imm Gran Abs Auto 0.05 X10*3/uL (0.00-0.03); Imm Gran Pct Auto 0.5 % (0.0-0.4); Lymphocytes Absolute Auto 3.8 X10*3/uL (1.2-4.9); Lymphocytes Percent Auto 39.4 % (20-40); Mean Corpuscular HGB Conc 32.5 g/dl (31.0-36.0); Mean Corpuscular Hemoglobin 29.6 pg (27.0-33.0); Mean Platelet Volume 11.1 fL (9.4-12.4); Monocytes Absolute Auto 0.5 X10*3/uL (0.1-1.2); Monocytes Percent Auto 5.4 % (2-11); Neutrophils Absolute Auto 5.1 x10*3/uL (2.0-8.3); Neutrophils Percent Auto 53.6 % (45-73); Platelet Count 219 X10*3/uL (160-400); Red Blood Count 4.33 X10*6/uL (4.60-5.80); Red Cell Distribution Width 15.6 % (11.0-16.0); White Blood Count 9.6 X10*3/uL (4.8-10.8)
[2025-01-09 13:52] LABS: Alanine Aminotransferase 19 U/L (0-40); Albumin Level 3.9 g/dL (3.5-5.0); Alkaline Phosphatase 145 U/L (39-117); Anion Gap 10 (12-20); Aspartate Amino Transferase 24 U/L (5-37); Bilirubin Total 0.5 mg/dL (0.0-1.0); Blood Urea Nitrogen 11 mg/dL (9-16); Calcium 9.6 mg/dL (8.4-10.2); Carbon Dioxide 29 mmol/L (22-29); Chloride 107 mmol/L (96-108); Estimated Glomerular Filt Rate 53; Glucose Random 104 mg/dL (60-115); Potassium 4.1 mmol/L (3.3-5.1); Sodium 142 mmol/L (135-145); Total Protein 7.4 g/dL (6.5-8.0)
[2025-01-10 15:23] LABS: HIV RNA PCR Qn Copies 33 copies/mL (NOT DETECTED); HIV RNA PCR Qn Log Copies 1.52 (NOT DETECTED)
[2025-01-12 16:48] LABS: Absolute CD3 Count 2246 cells/uL (840-3060); Absolute CD4 Count 754 cells/uL (490-1740); Absolute CD8 Count 1532 cells/uL (180-1170); Absolute Lymphocytes 3380 cells/uL (850-3900); CD4 CD8 Ratio 0.49 (0.86-5.00); Percent CD3 Cells 66 % (57-85); Percent CD4 Cells 22 % (30-61); Percent CD8 Cells 45 % (12-42)
== END 2025-01-09 11:57 | disposition home or self-care (01) ==
LOC: HO.HHCL 11:56
PROVIDERS: Visit Provider Internal Medicine
DX: Z21 Asymptomatic human immunodeficiency virus [HIV] infection status (principal)
CPT/HCPCS: 36415; 80053; 85025; 86359; 86360; 87536